=== PATIENT | female | born 1970 | race Caucasian/White ===

== ENCOUNTER 2017-03-12 18:26 | Inpatient (IN) | payer OTHER ==
[~2017-03-12] VITALS: Ht 160 cm; Wt 64.1 kg
[~2017-03-12 18:26] MED LIST: ADDERALL XR20 MG PO; ADDERALL XR25 MG PO; ADDERALL10 MG PO; BUSPAR5 MG PO; BUSPIRONE HCL10 MG PO; CLINDAMYCIN HY300 MG PO; CLONAZEPAM0.5 MG PO; CLONAZEPAM1 MG PO; CLONIDINE0.1 MG PO; DEXTROAMPH SACC10 M1 PO; EFFEXOR XR150 MG PO; GABAPENTIN300 MG PO; HYDROXYZINE PAM25 M1 PO; IRON325 M1 PO; KEFLEX750 MG PO; KLONOPIN0.5 MG PO; LASIX20 MG PO; LEVOTHYROXIN0.175 MG PO; LEVOTHYROXINE0.15 M1 PO; METHADONE H5 MG/5 ML PO; METHADONE HC10 MG/M1 PO; MOTRIN 600 MG600 MG PO; NEURONTIN300 MG PO; PERCOCET 325 MG1 TAB PO; VENLAFAXINE HY150 MG PO; ZOFRAN ODT4 MG PO
--- NOTE | 2017-03-12 18:54 | ED PSYCHIATRIC COMPLAINT ---
See Addendum History of Present Illness General Chief Complaint: Psychiatric Related Complaint Stated Complaint: +SI Source: patient, old records, police Exam Limitations: no limitations Vital Signs & Intake/Output Vital Signs & Intake/Output Vital Signs Date Time Temp Pulse Resp B/P B/P Pulse O2 O2 Flow FiO2 Mean Ox Delivery Rate 03/14 0625 97.2 62 20 100/50 98 Room Air 03/14 0255 97.7 76 20 126/76 99 Room Air 03/13 2000 97.4 58 18 111/63 100 Room Air 03/13 1542 97.3 61 12 107/65 99 Room Air Allergies Coded Allergies: chlorpromazine (From THORAZINE) (SEVERE RESP. DISTRESS 03/12/17) haloperidol (From HALDOL) (SEVERE RESP. DISTRESS 03/12/17) prochlorperazine (From COMPAZINE) (DYSTONIC REACTION 03/12/17) Reconcile Medications Bupropion HCl (Bupropion XL) 150 MG TAB.ER.24H 1 TAB PO QAM MENTAL HEALTH ( Reported) Buspirone HCl 15 MG TABLET 1 TAB PO BID MENTAL HEALTH (Reported) Clonazepam 0.5 MG TABLET 1 TAB PO 4XDAILY ANXIETY (Reported) Cranberry Fruit Concentrate (Cranberry) (Unknown Strength) CAPSULE (Unknown Dose) PO DAILY SUPPLEMENT (Reported) Dextroamphetamine/Amphetamine (Adderall XR 20 MG Capsule) 20 MG CAP.ER.24H 1 CAP PO QAM ADHD (Reported) Dextroamphetamine/Amphetamine (Dextroamp-Amphetamin 20 MG Tab) 20 MG TABLET 1 TAB PO QPM ADHD/SLEEP (Reported) Gabapentin 300 MG CAPSULE 1 CAP PO TID NERVE PAIN/MENTAL HEALTH (Reported) Methadone HCl 10 MG/5 ML SOLUTION 110 MG PO DAILY MENTAL HEALTH (Reported) Vitamin B Complex 1 EACH CAPSULE 1 CAP PO DAILY SUPPLEMENT (Reported) Triage Note: PT BIBA ON PEER FOR +SI WITHOUT PLAN. PT FLAGGED DOWN PD AND TOLD THEM SHE "DIDN'T WANT TO LIVE ANYMORE". PT TEARFUL ON ARRIVAL. Triage Nurses Notes Reviewed? yes Onset: Abrupt Duration: week(s): (1), constant, getting worse Timing: recent history Severity: severe Severity Numbers: 10 Associated Symptoms: suicidal ideation, DEPRESSION HPI: 47-year-old female with history of bipolar polysubstance abuse presents on police paper after she flagged down a precinct police lieutenant and told him that she did not want to live anymore. The patient presents tearful on arrival. She has no specific plan however when questioned she states that she was going to withhold the medication so that she from having a seizure and that it looked accidental so she will not to hell. She denies any alcohol or drug use today she has been compliant with taking her medication however recently moved here from [place] is currently living at home alone (MATT WERNER) Past History Travel History Traveled to [place] past 21 day No Medical History Any Pertinent Medical History? see below for history Neurological: NONE EENT: NONE Cardiovascular: NONE Respiratory: NONE Gastrointestinal: constipation Hepatic: hepatitis C Renal: NONE Musculoskeletal: sciatica, LUMBAGO Psychiatric: anxiety, depression, opioid dependence, ADHD Endocrine: hypothyroidism Tetanus Vaccine: 12/01/12 Surgical History Surgical History: non-contributory Psychosocial History Who do you live with Patient/Self What is your primary language Portuguese Family History Hx Contributory? No (MATT WERNER) Review of Systems Review of Systems Constitutional: Reports: see HPI. All Other Systems: Reviewed and Negative Comments Review of systems: See HPI, All other systems negative. Constitutional, no chills no fever, no malaise HEENT: no sore throat no congestion Cardiovascular: No chest pain , no palpitation Skin: no rashes, no change in skin Respiratory: No dyspnea no cough GI: No nausea no vomiting, no diarrhea, no bloating/constipation : No dysuria Muscle skeletal: No joint pain, no joint swelling, no back pain, no neck pain, Neurologic: no headache Psych: SEE HPI Heme/endocrine: No bruisin Immunology: No lymphadenopathy (MATT WERNER) Physical Exam Physical Exam General Appearance: well developed/nourished, no apparent distress, alert Neurological/Psychiatric: no motor/sensory deficits, awake, TEARFUL Comments: Well-developed well-nourished person in no acute distress HEENT: Normal EENT exam; PERRL, EOMI, . HEAD is atraumatic. moist mucous membranes. Neck: Supple,normal range of motion Back: Nontender, Full range of motion Cardiovascular: Regular rate and rhythms no murmurs rubs Respiratory: Chest nontender.There were no bony deformities, no asymmetry. No respiratory distress. Patient speaking in full complete sentences. Breath sounds clear to auscultation bilaterally: NO W/R/R Extremity: No edema, full range of motion of extremities, Neuro: Alert oriented x3, motor sensory normal,There were no obvious focal neurologic abnormalities. Skin: No appreciable rash on exposed skin, skin is warm and dry. Psych: Tearful, memory and judgment is normal. SAD PERSONS SAD PERSONS Response Value Age <19 or >45 years? yes 1 Depression/Hopelessness? yes 2 Previous Attempts/Psych Care yes 1 Rational Thinking Loss? yes 2 Single//? yes 1 Social Support? has no support 1 Stated Future Intent? yes 2 Total 10 SAD PERSONS Done? yes (MATT WERNER) Progress Differential Diagnosis: drug withdrawal, DEPRESSION BIPOLAR Plan of Care: Orders Procedure Date/time Status Continuous Observation Monitor 03/14 07 Active Continuous Observation Monitor 03/14 0300 Active Continuous Observation Monitor 03/13 230 Active Continuous Observation Monitor 03/13 190 Active Continuous Observation Monitor 03/13 0754 Active Current Medications Sig/Zaire Start time Last Medication Dose Stop Time Status Admin Clonazepam 0.5 MG 4 TIMES/DAY 03/14 1000 AC (KlonoPIN) 03/21 0959 Bupropion HCl 150 MG DAILY 03/13 1000 UNVr 03/13 (Wellbutrin XL) 0943 Buspirone HCl 15 MG BID 03/13 1000 UNVr 03/14 (Buspar) 0258 Gabapentin 300 MG TID 03/13 1000 UNVr 03/13 (Neurontin) 0943 Labs ordered 1999 case discussed with and signed out to Dr. Morales PENDING CRISIS EVAL (MATT WERNER) 7:45 pm patient signed out to me by JA Hunt. Waiting crisis evaluation. (MINA MORALES MD) Hand-Off Endorsed To: MINA MORALES MD Endorsed Time: 1999 Pending: consult (CRISIS) (MATT WERNER) Hand-Off Endorsed To: EZEQUIEL SARAH MD Endorsed Time: 2299 Pending: consult (MINA MORALES MD) Hand-Off Endorsed To: SOFYA YAP MD Endorsed Time: 699 Pending: consult (EZEQUIEL SARAH MD) Hand-Off Endorsed To: SYLVESTER MOSES MD Endorsed Time: 1899 Pending: consult (CRISIS) (SOFYA YAP MD) Hand-Off Endorsed To: DANICA NARAYAN DO Endorsed Time: 0700 Pending: consult (SYLVESTER MOSES MD) Departure Departure Disposition: STILL A PATIENT Condition: Stable Clinical Impression Primary Impression: Depression Referrals: CE RESENDEZ MD Departure Forms: Customer Survey General Discharge Information (MATT WERNER) PA/JOURNEYMAN OPERATOR ASSISTANT Co-Sign Statement Statement: ED Attending supervision documentation- [] I saw and evaluated the patient. I have also reviewed all the pertinent lab results and diagnostic results. I agree with the findings and the plan of care as documented in the PA's/JOURNEYMAN OPERATOR ASSISTANT's documentation. [x] I have reviewed the ED Record and agree with the PA's/JOURNEYMAN OPERATOR ASSISTANT's documentation. [] Additions or exceptions (if any) to the PAs/JOURNEYMAN OPERATOR ASSISTANT's note and plan are summarized below: [] (RIP SILVA,MINA) PA/JOURNEYMAN OPERATOR ASSISTANT Co-Sign Statement Statement: ED Attending supervision documentation- [] I saw and evaluated the patient. I have also reviewed all the pertinent lab results and diagnostic results. I agree with the findings and the plan of care as documented in the PA's/JOURNEYMAN OPERATOR ASSISTANT's documentation. [x] I have reviewed the ED Record and agree with the PA's/JOURNEYMAN OPERATOR ASSISTANT's documentation. [] Additions or exceptions (if any) to the PAs/JOURNEYMAN OPERATOR ASSISTANT's note and plan are summarized below: [] (TYREL SILVA,EZEQUIEL Dunlap) Departure Comments 03/14/17 7 am The patient was signed out to me by Dr. Moses. She is pending crisis evaluation. (DANICA NARAYAN DO) PA/JOURNEYMAN OPERATOR ASSISTANT Co-Sign Statement Statement: ED Attending supervision documentation- [] I saw and evaluated the patient. I have also reviewed all the pertinent lab results and diagnostic results. I agree with the findings and the plan of care as documented in the PA's/JOURNEYMAN OPERATOR ASSISTANT's documentation. [x] I have reviewed the ED Record and agree with the PA's/JOURNEYMAN OPERATOR ASSISTANT's documentation. [] Additions or exceptions (if any) to the PAs/JOURNEYMAN OPERATOR ASSISTANT's note and plan are summarized below: [] (EZEQUIEL SARAH MD)
[2017-03-12] MEDS ORDERED: CLONAZEPAM0.5 M2 PO (18:57)
[2017-03-12] MEDS ORDERED: GABAPENTIN300 M2 PO (18:58)
[2017-03-12] MEDS ORDERED: BUPROPION XL150 MG PO (18:58)
[2017-03-12] MEDS ORDERED: BUSPIRONE HCL15 M1 PO (18:58)
[2017-03-12] MEDS ORDERED: DEXTROAMP-AMPHE20 MG PO (18:59)
[2017-03-12] MEDS ORDERED: ADDERALL XR 2020 MG PO (18:59)
[2017-03-12] MEDS ORDERED: VITAMIN B COMP1 EACH PO (19:00)
[2017-03-12] MEDS ORDERED: CRANBERRY450 M3 PO (19:00)
[2017-03-12] MEDS ORDERED: METHADONE10 MG/5 M2 PO (19:01)
[2017-03-12 19:34] LABS: ABSOLUTE BASOPHIL COUNT 0.1 /CUMM (0.0-0.2); ABSOLUTE EOSINOPHIL COUNT 0.1 /CUMM (0.0-0.7); ABSOLUTE LYMPH COUNT 2.3 /CUMM (1.2-3.4); ABSOLUTE MONOCYTE COUNT 0.5 /CUMM (0.10-0.60); BASOPHIL % 0.6 % (0.0-2.0); EOSINOPHIL % 1.4 % (0-5); GRANULOCYTE % 70.1 % (42.2-75.2); HEMATOCRIT 33.6 % (37-47); MEAN CORPUSCULAR HGB 26.2 PG (27.0-31.0); MEAN CORPUSCULAR HGB CONC 31.5 G/DL (33.0-37.0); MEAN PLATELET VOLUME 8.2 FL (7.4-10.4); PLATELET COUNT 342 /CUMM (130-400); RBC DISTRIBUTION WIDTH 20.3 % (11.5-14.5); RED BLOOD CELL CT 4.05 /CUMM (4.20-5.40)
--- NOTE | 2017-03-14 07:44 | ED PSYCH CRISIS CONSULTATION ---
Crisis Consult Basic Assessment Date of Consult: 03/14/17 Responsible Person/Accompanied By: self/biba Insurance Authorization: Insurance #1: Insurance name: JULIA Espino C&A Phone number: Policy number: [id number] Group number: Authorization number: ED Provider: Patient's ED Provider: MATT WERNER Primary Care Physician: Patient's PCP: PATIENT HAS NO PRIMARY CARE DR PCP's Phone Number: Current Psychiatrist: [facility] Kenneth Huffman APRN [phone] Chief Complaint: Psychiatric Related Complaint Patient's Quote: I don't want to be alive Present Illness: Pt is a 47 yo female biba Fri on a [place] PD PEER due to pt making suicidal statements. Pt was at [facility] in [place] on Fri and told a parishoner she was suicidal and they called 911. Pt presented as agitated, combative and non-compliant in ED preventing completion of crisis consult until friday morning. Pt reports "I can't take it anymore... I have no reason to live anymore". Pt has a long hx of psychiatric inpatient treatment and polysubstance abuse treatment. She reports her last inpatient admission was at [facility] last yr. Her last admission to [facility] was 2014. She receives methodone treatment at [facility] and reports last heroin use 15 yrs ago. She reports also seeing Kenneth Huffman APRN at [facility] for her medications - adderall, klonopine. Pt reports current triggers are separation from and children and recent infidelity and potentional eviction from her housing. Pt reports her life is chaotic and she is confused and is having difficulty caring for herself. She reports difficulty maintaing her medications and has been missing several dosages of her thyroid med. After pt received her medications she presented as calmer though still tearful. she apologized for earlier escalation and stated she hates feeling and acting like that. Pt is OX3. denies AH/VH. vague paranoia "people are trying to hurt me" but unable to elaborate. Patient's Address: [address] [place] [id number] Other Phone Number: Who Do You Live With? Patient/Self (roommate) Family/Informants Interviewed: collateral provided by Willy Pitts at [facility] in [place] [phone] he reports not being familiar with pt but that she approached another [facility] Wed eveing during Bible Study and expressed suicidal thoughts and 911 was called and pt then transported to [place]. He has no other information regarding pt. Allergies - Coded Allergies: chlorpromazine (From THORAZINE) (SEVERE RESP. DISTRESS 03/12/17) haloperidol (From HALDOL) (SEVERE RESP. DISTRESS 03/12/17) prochlorperazine (From COMPAZINE) (DYSTONIC REACTION 03/12/17) Current Medications - Scheduled Medications Bupropion HCl (Bupropion XL) 150 MG TAB.ER.24H 1 TAB PO QAM MENTAL HEALTH #30 (Reported) Entered as Reported by PAULINA PALAFOX on 03/12/17 185 Buspirone HCl 15 MG TABLET 1 TAB PO BID MENTAL HEALTH #60 (Reported) Entered as Reported by PAULINA PALAFOX on 03/12/17 185 Clonazepam 0.5 MG TABLET 1 TAB PO 4XDAILY ANXIETY #120 (Reported) Entered as Reported by PAULINA PALAFOX on 03/12/17 185 Cranberry Fruit Concentrate (Cranberry) (Unknown Strength) CAPSULE (Unknown Dose) PO DAILY SUPPLEMENT (Reported) Entered as Reported by PAULINA PALAFOX on 03/12/17 190 Dextroamphetamine/Amphetamine (Adderall XR 20 MG Capsule) 20 MG CAP.ER.24H 1 CAP PO QAM ADHD #30 (Reported) Entered as Reported by PAULINA PALAFOX on 03/12/17 185 Dextroamphetamine/Amphetamine (Dextroamp-Amphetamin 20 MG Tab) 20 MG TABLET 1 TAB PO QPM ADHD/SLEEP #30 (Reported) Entered as Reported by PAULINA PALAFOX on 03/12/17 185 Gabapentin 300 MG CAPSULE 1 CAP PO TID NERVE PAIN/MENTAL HEALTH #90 (Reported ) Entered as Reported by PAULINA PALAFOX on 03/12/17 185 Methadone HCl 10 MG/5 ML SOLUTION 110 MG PO DAILY MENTAL HEALTH (Reported) Entered as Reported by PAULINA PALAFOX on 03/12/17 190 Vitamin B Complex 1 EACH CAPSULE 1 CAP PO DAILY SUPPLEMENT (Reported) Entered as Reported by PAULINA PALAFOX on 03/12/17 1900 Past History Past Medical History Neurological: NONE EENT: NONE Cardiovascular: NONE Respiratory: NONE Gastrointestinal: constipation Hepatic: hepatitis C Renal: NONE Musculoskeletal: sciatica, LUMBAGO Psychiatric: anxiety, depression, opioid dependence, ADHD Endocrine: hypothyroidism Past Surgical History Surgical History: non-contributory Psychosocial History Strengths/Capabilities: wants help/wants to be able to see her children again Physical Limitations (Interventions): None Psychiatric Treatment History Psych Treatment Psychiatric Treatment Yes Inpatient Treatment Yes Outpatient Treatment Yes Reason for Treatment Suicidal ideation; polysubstance abuse hx Dates of Treatment 1st inpatient 2002. Last CP 2014;long standing at [facility] Response to Treatment periods of agitation and confusion. last [facility] ED vist Sep 2015. Diagnosis by History: PTSD, ADHD, Mood disorder NOS, Polysubstance abuse and Borderline Personality Disorder Substance Use/Abuse History Drug Use/Abuse 1 Substances Used/Abused Yes Substance Used/Abused Prescribed Opiates Last Used yesterday How much used/taken 110mg How often daily Drug Use/Abuse 2 Substances Used/Abused Yes Substance Used/Abused Marijuana How often couple times/wk Substance Abuse Treatment Substance Abuse Treatment Past Substance Abuse TX Yes Inpatient Treatment No Outpatient Treatment Yes Location of Treatment [facility] Reason for Treatment methodone maintenance program Response to Treatment last heroin use 2002 Comments: Pt takes prescription adderall, klonopin and methodone. Pt tox screen also positive for marijuana Current Mental Status Mental Status Orientation: Person, Place, Situation Affect: Anxious, Angry, Depressed, Inappropriate, Variable Speech: Loud Neuro-vegetative: Appetite Decreased, Concentration Poor, Energy Decreased, Helpless, Loss of Interest, Sleep Disturbance Appearance Appearance- Dress/Hygiene: hospital scrubs; tearful; agitated; laying in bed then upright more irritated. Behaviors Thought Process: Irrational Thought Content: Paranoid Memory: Impaired Insight: Poor SI/HI Risk Assessment Past Suicidal Ideation/Attempts Yes (teenager) Current Suicidal Ideation/Att Yes Past Homicidal Ideation/Att: No Current Homicidal Ideation/Attempts No Degree of Intent: Thoughts/No Intent Danger To: Self Gravely Disabled: Lack of Insight, Poor Impulse Control, Poor Judgment Risk Factors: chronic/serious med cond., high anxiety/distress, history of suicide atmpts, SA/MH hospitalized, substance abuse, poor impulse control, limited support Lethality Ratin PTSD Checklist PTSD Done? patient declined ED Management Sitter: Yes Restraints: No DSM5/PS Stressors/Medical Prob Diagnosis' (DSM 5, Stressors, Medical): major Depressive D/O svere (F32.2) PTSD (F43.12) opiate use disorder in sustained remission (F11.20) cannabis use d/o (F12.20) Borderline Personality D/O(F60.3) pending eviction marital separation children out of her care hearing loss thyroid Current GAF: 25 Comments: pt reports separation from / infidelity and children out of her care as triggers for her hopelessness and SI Departure Disposition Psych Medical Clearance Date: 03/14/17 Medically Cleared at: 0730 Time Started: 07 Time Ended: 814 Psychiatrist Consulted: Torrey Nguyen MD Date Disposition Established: 03/14/17 Time Disposition Established: 819 Plan for Disposition - Modality: Inpatient Psychiatry Facility: [facility] Rationale for Disposition: Pt reports SI; inability to keep herself safe-states "i don't want to be alive". presenting with labile mood and agitation. requires inpatient psychiatric care. Type of IP Admission: Voluntary Referrals PATIENT HAS NO PRIMARY CARE DR (PCP/Family)
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
[2017-03-14 17:10] VITALS: BP 118/67
[2017-03-14 19:51] VITALS: BP 116/64
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
--- NOTE | 2017-03-14 22:59 | Admission Certification ---
Admission Certification Certification Statement - As attending physician, I certify that at the time of - admission, based on clinical presentation, severity of - symptoms, need for further diagnostic testing and - therapeutic interventions, and risk of adverse outcomes - without in-hospital treatment, in my clinical assessment, - this patient requires an acute hospital stay for a minimum - of two nights or longer. I have also considered psychsocial - factors such as support system, advanced age, financial - issues, cognitive issues, and failed out-patient treatments, - past re-admission history, safety of patient, and lack of - compliance as applicable. Specific rationale supporting this admission is: SUICIDAL IDEATION
[2017-03-15 07:39] VITALS: BP 107/79
[2017-03-15 12:58] VITALS: BP 94/68
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
--- NOTE | 2017-03-15 13:17 | CPS MD/APRN INITIAL ASSE PSYCH ---
Psychiatric Admission [employer] Acquis[employer] Attorney's Note Reviewed: Yes Patient Seen and Examined: Yes Identifying Information: 47 y/o CF domiciled vol admission Chief Complaint: i was scared and unstable Reaction to Hospitalization: i needed to be in here History of Present Illness Onset of Illness: over the course of the past several weeks Circumstances Leading to Admission: psychososocial stressors Problem(s) Justifying Need for Admission: mood suicidal thoughts, medication non adherence Other HPI: 47 CF initially BIBA after she was placed on a police peer for making si statements. She has a hx of mental health and polysubstance dep currently on methadone maint at the [facility] reports worsening depression over the past several weeks due to numerous psychosocial stressors including family leadin to depression which she currently rates as 10/10 having poor sleep and feelign unstable. She denies current SI, she refused to talk about current or past substance use "i dont remember and dont think aobut that". She denies previous manic sx denies previous truama or ptsd sx, denies psy chosis. Past Psychiatric History Past Diagnosis(es)- if any: Depression polysubstance abuse Past Precipitating Factors- if any: substance use, medication non adherence - Include inpatient and outpatient treatment Treatment History: [facility]ious inpatient psych hospital states rougly 25 lifetime laset occured 1 year4 ago, reports being in tx at [facility] with KIMBERLY Colon having numerous medication tirals in the past History of Suicide Attempts or Gestures denies hx of SI but has made several stateements and been admitted for endorsing these thoughts Substance Abuse History: refused to talk about her hx, currently on methadone maint. Allergies: Coded Allergies: chlorpromazine (From THORAZINE) (SEVERE RESP. DISTRESS 03/12/17) haloperidol (From HALDOL) (SEVERE RESP. DISTRESS 03/12/17) prochlorperazine (From COMPAZINE) (DYSTONIC REACTION 03/12/17) Home Med List: Methadone 110mg klonopin trazodone lexapro 20 mg buspar - Include any medical condition(s) that may - impact the patient's recovery/remission Past Medical History: hep C, thyroid Past History Medical History Neurological: NONE EENT: NONE Cardiovascular: NONE Respiratory: NONE Gastrointestinal: constipation Hepatic: hepatitis C, ANTIBODY Renal: NONE Musculoskeletal: sciatica, LUMBAGO Psychiatric: anxiety, depression, opioid dependence, ADHD Endocrine: hypothyroidism History of MRSA: No History of VRE: No History of CDIFF: No Isolation History: Standard Tetanus Vaccine: 12/01/12 Surgical History Surgical History: non-contributory Psychiatric Family/Social Hx Family History Psychiatric Illness: sister with both mental heatlh and substance abuse hx, denies family hx of complerted suicide Substance Use: sisters with polysubstance use Suicides: denies Social History Living Situation: domiciled Significant Relationships (family/friends): children and significant other Education: unknown Vocation/Occupation: unemployed Legal: denies Healthly Behaviors Screening Tobacco Screening Tobacco Use from ED Docu: Current Daily Use Daily Tobacco Use Amount/Type: => 5 Cigarettes daily - If tobacco counseling indicated - the following topics are required. - #1 Recognizing dangerous situations. - #2 Coping Skills. - #3 Basic information about quitting. Status of Tobacco Cessation Counseling: Counseling Refused Cessation Med Status Nicotine Patch Ordered Alcohol Screening - ETOH screen POS if BAL >=80 or Audit-C>= M4/F3 Audit-C Score from Diag Assess: 0 Blood Alcohol Level: Laboratory Tests 03/12 191 Toxicology Serum Alcohol (<10 MG/DL) < 10.0 Alcohol Use Screening Results: Neg per Audit C &/or BAL - If ETOH counseling indicated - the following topics are required. - #1 Express concern about the patient's - drinking at unhealthy levels, include informing - of national norms for moderate drinking: - men <= 14 drinks/week, max 4 drinks/occasion - women <= 7 drinks/week, max 3 drinks/occasion - #2 Providing feedback, including linking alcohol to - negative physical effects (liver injury, hypertension) - negative emotional effects (relationship problems and - depression) - negative occupational consequences (reduced work - performance) - #3 Advising the patient to abstain from alcohol or - to drink below national norms for moderate drinking - (as listed above). Status of ETOH Use Counseling: N/A B/C NO ETOH Use Metabolic Screening - Screen if on a Neuroleptic Medication - Metabolic screening should include: - Blood Pressure, BMI, Glucose or Hgb A1c, & a - Lipid profile from within the past 365 days. Exam and Plan Mental Status Examination Ambulation Status: regular Appearance: appearsed stated age Attitude towards examiner: insistent medication focused Psychomotor activity: Psychomotor agitation Behavior: labile Quality of speech: pressured Affect: irritable Mood: depressed Suicidal Ideation: denies Homicidal Ideation: denies Hallucinations: denies Paranoid/Delusional Material: denies Difficulties with thought organization: none Insight: limited Judgment: limited Orientation: AAOX3 Cognition: itnact Memory Function: intact Estimate of intellectual functioning: average Assets/Strengths Patient Identified Assets/Strengths: able to communicate needs Impression/Plan - Include all active medical diagnosis that require tx DSM 5 Diagnosis(es): MDD w/o psychosis polysubstance dep nicotine dep - Initial Tx Plan for Active Psych & Medical Conditions Treatment Plan: continue home medications, limite klonopin use - Factors that would help patient function - in a less restrictive setting. Factors: none
[2017-03-16 12:27] VITALS: BP 107/59
--- NOTE | 2017-03-16 12:42 | CP SOUTH PROGRESS NOTE PSYCH ---
Psych (Inpt) Progress Note Progress Note Include the following elements, when applicable: Involvement in the active treatment of the patient with behavioral observations of the patient and the patient's response to the treatment. Review of the ongoing treatment process in the context of the treatment plan. Indication of how multi-disciplinary staff members are carrying out the treatment plan. Plans for future interventions and recommendations for revision of the treatment plan. Liaison with other physicians/providers. Progress Note: patient seen chart reviewed d/w nursing staff She reports feeling angry and worse than yesterday, she reports depression in the contexct of not getting all of her medications, she has been demanding needy and medication focused. She reports pain in numerous areas more specifically her hand unhappy with tylenol order. She did utilize vistaril last evening with good effect on mood and sleep. she reports vague HI toward staff "They dont do anyything for me they dont listen or understand". denies plan intent or means, denies si or psychosis. med compliant no se reported. CF ASA no pmr/pma. Cooperative normal speech angry depressed mood tearful affect. linear denies si/hi or psychosis. i/j both limited MDD, polysbustance abuse no med changes as she is seekign more benzos, encourage vistaril
[2017-03-16 16:33] VITALS: BP 96/64
[2017-03-16 19:49] VITALS: BP 94/62
[2017-03-17 07:41] VITALS: BP 116/62
[2017-03-17 12:10] VITALS: BP 117/66
--- NOTE | 2017-03-17 12:14 | SOCIAL WORKER PROG NOTE PSYCH ---
Social Work Progress Note Progress Note Luz reported that her weekend "sucked." She doesn't care for her meds being "messed with." She reported that her meds are not what they were in the community and it is effecting her concentration and causing fatigue. She reports not feeling well mentally or physically. She wishes she could be transferred to [facility], stating they wouldn't mess with her meds. Aside from her medication patient presented as depressed with a flat affect. She seemed emotional. Talked about having more and more difficulty functioning. She isn't taking care of herself like she used to. She doesn't care about anything. She stated that she had been experiecing suicidal thoughts and that she had been scared to act on anything in the past, but she is feeling less like that and states "I have nothing to lose." She had difficulty initially identifying changes in her life, but later in the conversation revealed that she is being evicted from her section 8 housing and has no where to go. She feels she is being bullied by the landlord to get out. She shared that she made some poor decisions about letting people stay at her apt. and she wasn't supposed to. I asked if there was an eviction date? She said she didn't know and didn't care at this point. She reported that Friday was her birthday and she was feeling lonely and missed her kids. Her children 4 and 8 live with their Father. She reported that she let people into her apt. because she is lonely. Her family is in [place]. The only support she identifies is her ex . She was willing to have me call him and possibly arrange a meeting. Bob Quintana is his name. Contact # [phone]. She told me that she needs to go inpatient for mental health somewhere because she can't function any more. She repeatedly stated she "needed a break" from the stress she was experiencing. Later in the day Luz came to my office upset over the reduction of her Klonopin. She stated she wants to go because she is not being treated fairly here. She wants a direct admission from here to [facility]. I told her that doesn't happen and if she leaves, she would need to present at their ER. She was upset using a loud voice. She feels that the nursing staff don't like her and are "apethetic" towards her. She stated she is scared to go into benzo withdrawal. I continued to say that she is going to have an opportunity to see the doctor today and he can share why he is changing her meds and she has the opportunity to express her concerns in a calm fashion. According to nursing she signed a 3 day paper.
[2017-03-17 15:47] VITALS: BP 123/84
[2017-03-17 19:52] VITALS: BP 112/77
--- NOTE | 2017-03-17 20:43 | CP SOUTH PROGRESS NOTE PSYCH ---
Psych (Inpt) Progress Note Progress Note Include the following elements, when applicable: Involvement in the active treatment of the patient with behavioral observations of the patient and the patient's response to the treatment. Review of the ongoing treatment process in the context of the treatment plan. Indication of how multi-disciplinary staff members are carrying out the treatment plan. Plans for future interventions and recommendations for revision of the treatment plan. Liaison with other physicians/providers. Progress Note: PSYCHIATRIST NOTE, 03/17/2017: I discussed this patient's presentation and progress to date, current mental status, treatment and discharge planning with staff team today in the daily morning ITTM and I met with her myself in individual session. Patient was rather histrionic through much of our meeting but was able to calm herself down fairly well at times during the later part of the contact. [id number], she stressed the multiple difficulties she has been facing in recent months, the most prominent of which likely being her pending eviction from her apartment ( for having others stay with her in [address] housing unit); however, she claims that she was only given written order for the eviction about one month ago which may afford her still some time to organize another living situation. She expressed ambivalence about remaining in hospital if her medications were going to be reduced, by which she meant the Klonopin and Ritalin (though she claimed that since the latter was not exactly like her Adderall it "only keeps me from withdrawing but otherwise doesn't do any good..." I observed that the way she presented to hospital it appears that any/all of her preadmission meds might be called into question with regard to efficacy/adequacy. In the end, I agreed to make no further reductions in the Ritalin or Klonopin so long as this is a brief admission and she returns promptly to the care of her [employer] prescriber and [facility] providers; the latter have recommended she begin their IOP as soon as possible, even this week. Patient insists that she is not being provided adequate support services by her current outpatient treaters; I suggested that since she is a resident of [facility], at this time she would be eligible for a [facility] behavioral health case manager; she expressed keen interest in being assigned a behavioral health case manager but made it very clear that she does not want any "clinical" services from [facility] at this time but is quite satisfied with [facility] though the latter's location in [place] creates an everyday burden for her just to get there; she would very much like to have assistance with organizing transportation to her therapies.\\She also mentioned wanted to have an "[facility] behavioral health case manager."
[2017-03-18 07:33] VITALS: BP 126/69
--- NOTE | 2017-03-18 11:29 | SOCIAL WORKER PROG NOTE PSYCH ---
Social Work Progress Note Progress Note Dr. Valentine and I met with Luz together this morning. We began talking about how we could help her with her case management needs. She agreed to do a referral to [facility] for case management specifically. She started getting upset and tearful at the meeting. She seems to want to go to an inpatient setting for 30 days. We told her that was not available for mental health and that it seemed like alot of issues she is having would not be resolved in here specifically. She was very help rejecting during our conversation. I offered to do a referral for her to [facility] and explained that could offer her some respite for a couple weeks while she works on things. She didn't agree to that option at this point. She continued to focus on how she is not ready to leave and she feels we are "kicking her out." Dr. Valentine told her that we will start the process of looking into things and see how it goes. He told her if she stays he will continue to taper her medications as he feels that should be done. She left the office with me and continued to cry and speak loudly about how this was unfair. She signed releases for [facility], [facility], and her SALES APPOINTMENT COORDINATOR Kenneth Huffman. She also asked for the patient advocate number which was given to her. I called her SALES APPOINTMENT COORDINATOR, who is connected to [facility] in [place]. [phone]. I left a message. I missed her call and called again and left another voicemail. Referral was faxed to [facility] and a message left for Karen in intake. Called Mr. Quintana (ex ) and left a message.
--- NOTE | 2017-03-18 11:34 | CP SOUTH PROGRESS NOTE PSYCH ---
Psych (Inpt) Progress Note Progress Note Include the following elements, when applicable: Involvement in the active treatment of the patient with behavioral observations of the patient and the patient's response to the treatment. Review of the ongoing treatment process in the context of the treatment plan. Indication of how multi-disciplinary staff members are carrying out the treatment plan. Plans for future interventions and recommendations for revision of the treatment plan. Liaison with other physicians/providers. Progress Note: PSYCHIATRIST NOTE, 03/18/2017: I discussed this patient's progress to date, current mental status, treatment and discharge planning with staff team today in the daily morning KAUR and Ondina Maldonado LCSW, and I met with her together in individual session. We went over the practical difficulties patient has been saying brought her to the point where she was hospitalized and did our best to problem solve with her. Patient behaved intermittently in a rather histrionic manner but in between these brief outbursts was able to speak rationally, without any evidence of formal thought disorder; she seemed to escalate emotionality any time that we did not completely agree with her "plans" for the future (e.g. staying in hospital for "several weeks to rest...") Though the way she was speaking made me even more concerned about increased impulsivity contributed to by her ongoing outpatient prescription of amphetamines and benzodiazepines patient continued to adamantly refuse to consider further taper of either or any other changes to her psychotropic medication regimen for that matter. Ms. Maldonado noted that if patient wanted a "break" from concerns connected to her current residence, we could make a referral to [facility] housing in [place] which would actually be closer to her current treatment which has been problem for her coming into [place] from [place] everyday. I had requested an endocrine consultation with Dr. Godinez due to patient's very high and rising TSH and very significantly depressed T4 and free T4; I spoke directly with Dr. Godinez who told me that patient had been previously treated with 175mcg of Synthroid, not the 100mcg she is currently prescribed and that patient has from the look of her thyroid studies not been taking her thyroid supplement "for a long time...months...maybe years." Dr. Godinez wishes to repeat thyroid tests once prior to discharge; she stressed that patient is quite significantly hypothyroid presently.
[2017-03-18 12:16] VITALS: BP 124/76
--- NOTE | 2017-03-18 15:03 | Cons- Endocrinology ---
General Information and HPI Consulting Request Date of Consult: 03/18/17 Requested By: Liliana Reason for Consult: management of hypothyroidism Source of Information: patient Exam Limitations: no limitations History of Present Illness: She has a history of hypothyroidism, drug abuse and depression, wasn't on thyroid medication for a while, was admitted to for major depression disorder and suicidal ideation. She was supposed to be on Levothyroxine 175 mcg daily. Blood work done on 03/12/2017 showed TSH 87.8, free T4 0.13. On 03/15/2017, she was put on Levothyroxine 100 mcg daily. Repeat TFT on 03/18/2017 showed TSH 104 and free T4 0.19. Allergies/Medications Allergies: Coded Allergies: chlorpromazine (From THORAZINE) (SEVERE RESP. DISTRESS 03/12/17) haloperidol (From HALDOL) (SEVERE RESP. DISTRESS 03/12/17) prochlorperazine (From COMPAZINE) (DYSTONIC REACTION 03/12/17) Home Med List: Bupropion HCl (Bupropion XL) 150 MG TAB.ER.24H 1 TAB PO QAM MENTAL HEALTH ( Reported) Buspirone HCl 15 MG TABLET 1 TAB PO BID MENTAL HEALTH (Reported) Clonazepam 0.5 MG TABLET 1 TAB PO 4XDAILY ANXIETY (Reported) Cranberry Fruit Concentrate (Cranberry) (Unknown Strength) CAPSULE (Unknown Dose) PO DAILY SUPPLEMENT (Reported) Dextroamphetamine/Amphetamine (Adderall XR 20 MG Capsule) 20 MG CAP.ER.24H 1 CAP PO QAM ADHD (Reported) Dextroamphetamine/Amphetamine (Dextroamp-Amphetamin 20 MG Tab) 20 MG TABLET 1 TAB PO QPM ADHD/SLEEP (Reported) Gabapentin 300 MG CAPSULE 1 CAP PO TID NERVE PAIN/MENTAL HEALTH (Reported) Methadone HCl 10 MG/5 ML SOLUTION 110 MG PO DAILY MENTAL HEALTH (Reported) Vitamin B Complex 1 EACH CAPSULE 1 CAP PO DAILY SUPPLEMENT (Reported) Review of Systems Review of Systems Constitutional: Reports: see HPI. Cardiovascular: Denies: chest pain, palpitations. Respiratory: Denies: short of breath. Neurological/Psychological: Reports: other (tearing and anxious). 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 [facility] Smoking Status: Current Everyday Smoker ETOH Use: occasional use Illicit Drug Use: marijuana Functional Ability ADLs Independent: dressing, eating, toileting, bathing. 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 Exam & Diagnostic Data Last 24 Hrs of Vital Signs/I&O Vital Signs Date Time Temp Pulse Resp B/P B/P Pulse O2 O2 Flow FiO2 Mean Ox Delivery Rate 03/18 1216 62 124/76 03/18 0733 97.0 74 126/69 03/17 1952 97.7 72 112/77 03/17 1547 66 123/84 Physical Exam General Appearance: mild distress Neck: normal inspection Respiratory: normal breath sounds Cardiovascular: regular rate/rhythm Gastrointestinal: normal bowel sounds, soft Extremities: no edema Labs/Lai Results: Laboratory Tests 03/18 613 Chemistry Vitamin B12 (239 - 931 pg/mL) 539 Folate (2.76 - 20.0 ng/mL) 5.7 TSH (0.270 - 4.200 uIU/mL) 104.000 H Free T4 (0.64 - 1.79 ng/dL) 0.19 L Thyroxine (T4) (4.5 - 10.9 ug/dL) 2.4 L Assessment/Plan Assessment/Plan She has a history of hypothyroidism, drug abuse and depression, wasn't on thyroid medication for a while, was admitted to for major depression disorder and suicidal ideation. She was supposed to be on Levothyroxine 175 mcg daily. Blood work done on 03/12/2017 showed TSH 87.8, free T4 0.13. On 03/15/2017, she was put on Levothyroxine 100 mcg daily. Repeat TFT on 03/18/2017 showed TSH 104 and free T4 0.19. Severe hypothyroidism is due to noncompliance of thyroid medication. Plan: 1. increase Levothyroxine to 175 mcg daily 2. repeat TSH, free T4 on 03/21/2017 to look for a trend. will follow. Consult Acknowledgment - Thank you for your consult request.
[2017-03-18 19:53] VITALS: BP 124/74
[2017-03-19 07:57] VITALS: BP 107/57
--- NOTE | 2017-03-19 11:31 | SOCIAL WORKER PROG NOTE PSYCH ---
Social Work Progress Note Progress Note Dr. Valentine, Luz, and I met together today. Dr. Valentine informed her that we will have her stay through Friday at least and then re-evaluate how she is doing and look at her thyroid function. Her hypothyroidism is most likely causing alot of her current symptoms and causing her to feel that she can't function. She talked about not taking her medications and that she just didn't care anymore, because she didn't care about herself or feel that she deserved better. She broke down crying explaining to the doctor and I how she was very hurt by her leaving her for another young woman. She states this affair was going on for 6 years. Since that time she has struggled. She acknowledges needing help and wanting to get her life back. She specifically wants to be a Mother to her 2 children. She last spoke with them at the beginning of February. She said they had a nice time together. Her ex- wants her to be stable on her meds and wants to see her in an inpatient setting for a month. We explained that people aren't hospitalized for that length of time anymore. I told her I called her ex yesterday and left a message, but hadn't rec'd a call back yet. Talked about the strengths that she does have and to focus on those. She acknowledged wanting to stay away from the "pill pushers and people selling methadone" outside of the methadone clinic. She is very interested in attending IOP at [facility] and states she would need to get there around 7am to participate in groups. She would like help in getting [facility] to bring her again. I told her I would call them. She has alot of knowledge about her illness, DBT, addiction issues ect.. She was encouraged her to start writing about it. She seemed to like that idea. She was appreciative of the time the doctor spent talking to her today. Called Kenneth Colon APRN 2x's today, but we continue to miss eachother. She was at a training. Dayanarasergio Siegel submitted a PTR form to [facility] to try and get Luz rides again.
--- NOTE | 2017-03-19 12:24 | CP SOUTH PROGRESS NOTE PSYCH ---
Psych (Inpt) Progress Note Progress Note Include the following elements, when applicable: Involvement in the active treatment of the patient with behavioral observations of the patient and the patient's response to the treatment. Review of the ongoing treatment process in the context of the treatment plan. Indication of how multi-disciplinary staff members are carrying out the treatment plan. Plans for future interventions and recommendations for revision of the treatment plan. Liaison with other physicians/providers. Progress Note: PSYCHIATRIST NOTE, 03/19/2017: I discussed this patient's slow progress to date, current mental status, treatment and discharge planning with staff team today in the daily morning ITTTian and Ondina Maldonado LCSW, and I met with her again together in individual session. The first thing we discussed was the consultation from electronic gluing machine operator, Dr. Godinez , which I had mentioned in yesterday's progress note; she was quite concerned about the degree/extent of depression in patient's thyroid functions and the advisability of restarting treatment at a higher dose than currently (placed on 100mcg/day on admission but had previously been prescribed 175mg daily but had not been taking her Synthroid most likely for a very long time). Current severe hypothyroid state likely contributes significantly to patient's depressed and anxious (and at times near hysterical) [id number]. Due to the need to rapidly increase dose of Synthroid I will not further increase Wellbutrin dose or taper current Klonopin dose at this time/yet. Patient wished the PRN Seroquel and trazodone discontinued, as she claimed to have found them to be ineffective during previous treatment. We discussed nonpharmacologic treatments which would likely be beneficial to her (such as DBT) and that she could be referred to such a group after completing IOP at [facility] which is her current short- term plan. Patient calmed significantly over the course of an extended interview; at the conclusion of our meeting she exclaimed that "I have never in my life spent this much time speaking with a psychiatrist. Thank you for caring." (For further important details of Ms. Maldonado and my session with this patient today, please see the latter's progress note for this date.)
[2017-03-19 12:30] VITALS: BP 100/78
[2017-03-19 16:06] VITALS: BP 121/72
[2017-03-19 19:48] VITALS: BP 94/63
[2017-03-20 07:40] VITALS: BP 118/67
--- NOTE | 2017-03-20 08:40 | SOCIAL WORKER PROG NOTE PSYCH ---
Social Work Progress Note Progress Note Spoke with Luz yesterday about rescinding her 3 day paper to terminate voluntary status. She agreed to revoke it, but we forgot to do this yesterday. I approached her today and she rescinded the paper. She said she was having a difficult time with the "med nurse". I didn't pay much focus on that. I spoke with her later while she was sitting in the kitchen. She said she was "spacing out" and just thinking about sad things. Thinking of her kids mostly. Encouraged her not to dwell on the past and to focus on today and what she can do for herself today to help her situation. She said she hasn't slept and she needs some rest. She asked if her ex called me back. I told her he hadn't. She asked that I try him again. She seemed deeply hurt by his apparent lack of concern. She is afraid to be alone in the community. We talked about V[facility] services checking in with her daily. It seems like VNS coming in the afternoon/ evening would be best, since she has to leave to go to [facility] so early in the morning. Luz decided to take a nap for an hour before lunch. Spoke with Karen at [facility] who informed me that they will give Luz an intake appt. for case management services. Intake will be with Rosa Flowers 04/02 at 12:30pm. Called [facility] to set up daily med administration. Spoke with Haroldo Harrington (lace tearing supervisor). Gave him the referral. Will call when discharge date is confirmed. [employer] required additional information for the PTR form, which was provided and faxed back today.
[2017-03-20 12:21] VITALS: BP 108/68
[2017-03-20 16:20] VITALS: BP 93/68
--- NOTE | 2017-03-20 18:01 | CP SOUTH PROGRESS NOTE PSYCH ---
Psych (Inpt) Progress Note Progress Note Include the following elements, when applicable: Involvement in the active treatment of the patient with behavioral observations of the patient and the patient's response to the treatment. Review of the ongoing treatment process in the context of the treatment plan. Indication of how multi-disciplinary staff members are carrying out the treatment plan. Plans for future interventions and recommendations for revision of the treatment plan. Liaison with other physicians/providers. Progress Note: PSYCHIATRIST NOTE, 03/20/2017: I discussed this patient's progress to date, current mental status, treatment and discharge planning with staff team today in the daily morning ITTM and also met with her again myself in individual session. Ms. Maldonado is working with patient to set up additional supports in the community (e.g. [facility] residential case manager; daily visiting nurse services). Patient presented as much quieter and withdrawn today, appeared profoundly sad and did acknowledge significantly depressed mood though still feeling safe from self-harm here in hospital. We went over current anti-depressant regimen; she was concerned that increasing Wellbutrin might intensify her anxiety symptoms and wished to hold off on upward dose titration; I encouraged her to utilize the low dose PRN's of Abilify; patient has taken only a single 2mg dose of Abilify since yesterday. She agreed to my increasing daily dose of BuSpar which she had previously found helpful at 30mg/day to a total of 45mg daily by doubling HS dose tonight and then further titrating dose up to a total of 60mg/day before the weekend. She is continuing to experience some sleep difficulty and hopefully the increased dose of BuSpar at HS and upward titration of PRN Neurontin will help with this. Patient had asked that her doses of Klonopin be stretched out more during the day; I changed dosing from 0.5mg 2x/day to 0.25mg 4x/day but maintained the current daily dose total of 1mg and the ultimate plan/recommendation continues to be gradual but complete discontinuation of Klonopin.
[2017-03-21 07:39] VITALS: BP 104/64
--- NOTE | 2017-03-21 08:18 | SOCIAL WORKER PROG NOTE PSYCH ---
Social Work Progress Note Progress Note Pt wants to call [facility] today to talk to her case management assistant, to find out what options she has in regards to her section 8 voucher, as she is concerned that she thinks her current landlord "wants me out as soon as possible". Pt is tearful, states the past 2 years she has not taken very good care of herself. She plans to return to [facility] IOP/ and alla to make appointments for thyroid follow up with PCP. * Community resource contacts and liaison with other clinicians/agencies
--- NOTE | 2017-03-21 08:34 | PN- Endocrinology ---
Assessment/Plan Assessment: She has a history of hypothyroidism, drug abuse and depression, wasn't on thyroid medication for a while, was admitted to for major depression disorder and suicidal ideation. She was supposed to be on Levothyroxine 175 mcg daily. Blood work done on 03/12/2017 showed TSH 87.8, free T4 0.13. On 03/15/2017, she was put on Levothyroxine 100 mcg daily. Repeat TFT on 03/18/2017 showed TSH 104 and free T4 0.19. Severe hypothyroidism is due to noncompliance of thyroid medication. Since 03/18/2017, she has been on Levothyroxine 175 mcg daily. Repeat TFT was done this morning her TSH was 85.2 and free T4 0.40. Plan: increase Levothyroxine to 200 mcg daily; repeat TSH and free T4 next week. Subjective Subjective: She feels slightly better. Objective Last 24 Hrs of Vital Signs/I&O Vital Signs Date Time Temp Pulse Resp B/P B/P Pulse O2 O2 Flow FiO2 Mean Ox Delivery Rate 03/21 0739 98.5 66 104/64 03/20 1620 71 93/68 03/20 1221 64 108/68 Results Pertinent Lab/Lai Results: Laboratory Tests 03/21 0656 Chemistry TSH (0.270 - 4.200 uIU/mL) 85.200 H Free T4 (0.64 - 1.79 ng/dL) 0.40 L
--- NOTE | 2017-03-21 09:19 | SOCIAL WORKER PROG NOTE PSYCH ---
Social Work Progress Note Progress Note SHANI CARDONA [id number] 1970 SHANI CARDONA [id number] Pended Authorization # Client Authorization # Type of Request [id number] CONCURRENT Date of Admission/ Start of Services Requested From Submission Date 03/14/2017 03/21/2017 03/21/2017
[2017-03-21 12:24] VITALS: BP 114/73
--- NOTE | 2017-03-21 15:29 | SOCIAL WORKER PROG NOTE PSYCH ---
Social Work Progress Note Progress Note Voicemail from Nohemi Colon regarding a follow-up appointment for 03/31 at 5pm. This contact wanted clinical faxed to [phone]. This voicemail was left on Ondina Maldonado's voicemail on 03/21.
[2017-03-21 15:48] VITALS: BP 102/68
--- NOTE | 2017-03-21 16:47 | CP SOUTH PROGRESS NOTE PSYCH ---
Psych (Inpt) Progress Note Progress Note Include the following elements, when applicable: Involvement in the active treatment of the patient with behavioral observations of the patient and the patient's response to the treatment. Review of the ongoing treatment process in the context of the treatment plan. Indication of how multi-disciplinary staff members are carrying out the treatment plan. Plans for future interventions and recommendations for revision of the treatment plan. Liaison with other physicians/providers. Progress Note: PSYCHIATRIST NOTE, 03/21/2017: I discussed this patient's progress to date, current mental status, treatment and discharge planning with staff team today in the daily morning ITM and met with her again myself in individual session; we had continued our discussion of her severely hypothyroid state yesterday, 03/20/2017 and today, in response to continuing very low thyroid studies endocrinology, Dr. Godinez, further increased dose of levothyroxine to 200mcg/day for over the weekend and will repeat studies next week (I have ordered them for 03/24/2017). We continued our discussion of the multiple negative effects of hypothyroid status and it's undoubted contribution to patient's current anxious depression. She is tolerating the upward titration of BuSpar went thus far, will be on full 60mg/ day from today forword. Patient noted benefit from PRN dose of Abilify today and wished to start on a regular dose over the coming weekend; I will begin Abilify, 2mg 2x/day and continue the PRN's of same. The Abilify is helping with anxiety/worry and racing thoughts and may also serve to augment the effectiveness of Wellbutrin; though patient has shown gradual calming and better self-control given the continuing current level of anxiety, we do not plan to increase the daily dose of Wellbutrin above 200mg/day over the weekend. Patient was not as withdrawn and sullen in appearance today as she had been yesterday, a little more hopeful and positive in outlook. We continue to maintain a lowered dose of Ritalin (20mg) and Klonopin ) (1mg) from her preadmission prescriptions in order to minimize the "noise" (from withdrawal symptoms) likely to be associated with complete abrupt discontinuation of two such habit-forming drugs; our ultimate recommendation, however, remains that the slow taper (and complete discontinuation) of both of these medications should continue soon after discharge to outpatient treatment.
[2017-03-21 19:40] VITALS: BP 102/62
[2017-03-22 07:36] VITALS: BP 101/56
[2017-03-22 12:01] VITALS: BP 120/70
--- NOTE | 2017-03-22 14:49 | CP SOUTH PROGRESS NOTE PSYCH ---
Psych (Inpt) Progress Note Progress Note Include the following elements, when applicable: Involvement in the active treatment of the patient with behavioral observations of the patient and the patient's response to the treatment. Review of the ongoing treatment process in the context of the treatment plan. Indication of how multi-disciplinary staff members are carrying out the treatment plan. Plans for future interventions and recommendations for revision of the treatment plan. Liaison with other physicians/providers. Progress Note: She stated that she is upset about her med changes; that she wants to continue her clonazepam when she is discharged. We discussed risk with methadone, and risk of overdose with a new lower dose on discharge. She was pleasant overall, was amenable to discussion. She had slept poorly, but understood it was likelty related to the med taper. No other issues. MSE: older woman, well groomed, pleasant and well related. No movement disorder or psychomotor agitation evident. Thought process is linear, content is free of delusional thinking, thoughts to harm self or anyone else. Her insight is fair, judgment is appropriate. Her mood is somewhat irritated but good overall. Plan: continue med taper as per primary team, agreeable to this (though not happy) and no other concerns currently.
[2017-03-22 15:46] VITALS: BP 128/74
[2017-03-22 20:38] VITALS: BP 115/67
[2017-03-23 07:37] VITALS: BP 118/73
[2017-03-23 12:14] VITALS: BP 107/69
--- NOTE | 2017-03-23 14:01 | CP SOUTH PROGRESS NOTE PSYCH ---
Psych (Inpt) Progress Note Progress Note Include the following elements, when applicable: Involvement in the active treatment of the patient with behavioral observations of the patient and the patient's response to the treatment. Review of the ongoing treatment process in the context of the treatment plan. Indication of how multi-disciplinary staff members are carrying out the treatment plan. Plans for future interventions and recommendations for revision of the treatment plan. Liaison with other physicians/providers. Progress Note: Stated that she feels mad about not being able to sleep, that she feels miserable being here. Stated that she does not want to taper her clonazepam, feels that it is the only thing that is helpful for her anxiety and sleep. Said that she does not want to take PRNs offered b/c she feels they are not helpful. She stated that no one is helping me, Im just going to go back to the same miserable place I was in before I got here.. We discussed med changes and offered changing doses of her other doses and she continued to decline, stating that nothing is helpful. I explained that her and primary team have made a plan to taper clonazepam and she can re-eval this plan if she continues to have sx of anxiety/insomnia. MSE: older woman, well groomed; tearful, easily frustrated today. Mood depressed , affect full, stable. No psychmotor changes evident. er thinking is linear and coherent. Her thought content is free of delusional thinking, though she is focused on her medication, feels depressed and that she is not getting better. Her insight is fair, judgment is appropriate. Plan: continue current med doses, encouraged her to discuss med changes w/ primary team; she continues to state that she does not want to further taper clonazepam. She was offered other medications/doses and did decline.
[2017-03-23 16:12] VITALS: BP 102/64
[2017-03-24 07:33] VITALS: BP 99/70
--- NOTE | 2017-03-24 12:18 | PN- Endocrinology ---
Assessment/Plan Assessment: She has a history of hypothyroidism, drug abuse and depression, wasn't on thyroid medication for a while, was admitted to for major depression disorder and suicidal ideation. She was supposed to be on Levothyroxine 175 mcg daily. Blood work done on 03/12/2017 showed TSH 87.8, free T4 0.13. On 03/15/2017, she was put on Levothyroxine 100 mcg daily. Repeat TFT on 03/18/2017 showed TSH 104 and free T4 0.19. Severe hypothyroidism is due to noncompliance of thyroid medication. Since 03/18/2017, she was on Levothyroxine 175 mcg daily. Repeat TSH was 85.2 and free T4 0.40. Levothyroxine was further increased to 200 mcg daily. On 03/24/2017, repeat TSH was 69.1 and free T4 was 0.51. Plan: Her TFT is improving; She will continue Levothyroxine 200 mcg daily for now; From thyroid standpoint, it is okay for patient to be discharged. However, it will be determined by psychiatric team whether she is ready to be discharged or not. Discharge plan for hypothyroidism: ---Levothyroxine 200 mcg daily; ---repeat TSH, free T4 next week and then in 4 weeks ---f/u in office after discharge. Subjective Subjective: She still feel upset and patient feels that she is not ready for discharge. Objective Last 24 Hrs of Vital Signs/I&O Vital Signs Date Time Temp Pulse Resp B/P B/P Pulse O2 O2 Flow FiO2 Mean Ox Delivery Rate 03/24 0733 98.9 71 99/70 03/23 1612 71 102/64 03/23 1214 72 107/69 Results Pertinent Lab/Lai Results: Laboratory Tests 03/24 0618 Chemistry TSH (0.270 - 4.200 uIU/mL) 69.100 H Free T4 (0.64 - 1.79 ng/dL) 0.51 L Thyroxine (T4) (4.5 - 10.9 ug/dL) 5.0
[2017-03-24] MEDS ORDERED: KLONOPIN0.5 M1 PO (12:26)
[2017-03-24] MEDS ORDERED: SYNTHROID200 MCG PO (12:26)
[2017-03-24] MEDS ORDERED: NICOTINE PATCH1 EAC3 TOP (12:26)
[2017-03-24] MEDS ORDERED: ABILIFY2 MG PO (12:26)
[2017-03-24] MEDS ORDERED: WELLBUTRIN SR100 M2 PO (12:26)
[2017-03-24 12:33] VITALS: BP 136/76
--- NOTE | 2017-03-24 14:17 | SOCIAL WORKER PROG NOTE PSYCH ---
Social Work Progress Note Progress Note Luz became stressed and upset when she became aware that she may discharge today. Dr. Valentine and I met with Luz together. She was upset because she didn't feel prepared and stated she had no way of getting into her apartment until 7pm today. Dr. Valentine agreed to discharge her tomorrow morning. This way we can secure her appt. with Dr. Godinez and make sure she can get home. Reviewed all of her follow up appt.'s with her. Will schedule [facility] for tomorrow at 11am. Luz was relieved that she will have more time to prepare for discharge for tomorrow. Dayanara Robbin [facility] called [employer] and informed me that she was denied based on medical necessity.
[2017-03-24 16:37] VITALS: BP 122/70
--- NOTE | 2017-03-24 17:00 | SOCIAL WORKER PROG NOTE PSYCH ---
Social Work Progress Note Progress Note [facility] set up for discharge home confirm # [id number] tomorrow at 11am. Pt had been approved for a PTR in 2014, if you want to resend it again the worker from [facility] stated adding all of the pts medical issues, for now she will get bus tokens, as the radius from bus stop is within the perimeters to not require livery. (0.75) she lives (0.5).
--- NOTE | 2017-03-24 17:23 | CP SOUTH PROGRESS NOTE PSYCH ---
Psych (Inpt) Progress Note Progress Note Include the following elements, when applicable: Involvement in the active treatment of the patient with behavioral observations of the patient and the patient's response to the treatment. Review of the ongoing treatment process in the context of the treatment plan. Indication of how multi-disciplinary staff members are carrying out the treatment plan. Plans for future interventions and recommendations for revision of the treatment plan. Liaison with other physicians/providers. Progress Note: PSYCHIATRIST NOTE, 03/24/2017: I discussed this patient's slow progress to date, current mental status, treatment and dsicharge planning with staff team today in the daily morning ITTTian and Ondina Maldonado LCSW, and I met with patient together in individual session. Patient was more disorganized, scattered than she had been when I last met with her on 03/21/2017. I had gone over the repeat TSH, TFT's from this morning with endocrine wellness consultant, Dr. Yousuf Godinez; the latter was pleased with the small improvements in thyroid function and slowly declining TSH, recommended continuing the current dose of Synthroid, 200mcg/day, with repeat visit with her and re-evaluation of thyroids in 2 weeks.
--- NOTE | 2017-03-24 18:35 | SOCIAL WORKER PROG NOTE PSYCH ---
Social Work Progress Note Progress Note COMPLETED [facility] ONLINE REVIEW - CHECK WEB FOR NEXT REVIEW DATE.
[2017-03-24 20:05] VITALS: BP 118/72
[2017-03-25 07:33] VITALS: BP 111/60
--- NOTE | 2017-03-25 09:06 | SOCIAL WORKER PROG NOTE PSYCH ---
Social Work Progress Note Progress Note Called [facility] to let them know Luz would be discharging today. They can see her later this afternoon. Haroldo Harrington (supervisor gelatin plant) asked if there would be a supervising psychiatrist in the community willing to sign ongoing orders. I told him I would ask Nohemi Huffman APRN and get back to him. Called and left a message with Nohemi. Informed Luz that the PTR form was denied by [facility] [place], but we will submit another form today and try again. Encouraged her to follow up with [facility] in a couple of days to see if it's been accepted. She said she will continue to leave the house early and get the bus to go to [facility]. Informed her that the visiting nurse will see her this afternoon. She would like the nurse to pear picker her meds. Luz seemed to be in a good place today. She was prepared to go home and mood/ affect was appropriate. Called [facility], Haroldo Harrington said meds can be called into [facility] in [place]. There was a problem with Luz's [facility] transportation. I needed to call again to set it up for today. She was picked up early afternoon. W-10 and discharge info faxed to [facility], [facility], [facility], and Nohemi Huffman APRN.
[2017-03-25] MEDS ORDERED: GABAPENTIN300 M2 PO (10:50)
[2017-03-25] MEDS ORDERED: ABILIFY5 M1 PO (10:50)
[2017-03-25] MEDS ORDERED: SYNTHROID200 MCG PO (10:57)
[2017-03-25] MEDS ORDERED: RITALIN10 MG PO (10:57)
--- NOTE | 2017-03-25 14:29 | DISCHARGE SUMMARY REPORT-PSYCH ---
Visit Information Visit Dates/Diagnosis' Admission Date: 03/14/17 Discharge Date: 03/25/17 Reason for Admission: " Psy Discharge Primary Diag: Unspecified Depression R/O contribution to mood symptoms from polydrug use disorders and also dependence on abusable prescribed medications Psy Discharge Secondary Diag: longstanding noncompliant behavior (not taking her Synthroid for extended period of time [employer] Borderline Personality Opioid Use Disorder; in sustained full remission on agonist therapy with methadone Cannabis Use Disorder Cannabis Intoxication Stimulant (amphetamine) Dependence; R/O abuse Sedative/Hypnotic/ Anxiolytic Dependence (on rx'd Klonopin despite longtime methadone maintenance Hepatitis C (+) in 2013 Hospital Course Course Allergies: Coded Allergies: chlorpromazine (From THORAZINE) (SEVERE RESP. DISTRESS 03/12/17) haloperidol (From HALDOL) (SEVERE RESP. DISTRESS 03/12/17) prochlorperazine (From COMPAZINE) (DYSTONIC REACTION 03/12/17) Discharge HBIPS - Tobacco Use Treatment Offered - EtOH/Drug Use D/O Treatment Offered Metabolic Screening - Screen if on a Neuroleptic Medication - Metabolic screening should include: - Blood Pressure, BMI, Glucose or Hgb A1c, & a - Lipid profile from within the past 365 days.
--- NOTE | 2017-03-25 14:29 | CP SOUTH PROGRESS NOTE PSYCH ---
Psych (Inpt) Progress Note Progress Note Include the following elements, when applicable: Involvement in the active treatment of the patient with behavioral observations of the patient and the patient's response to the treatment. Review of the ongoing treatment process in the context of the treatment plan. Indication of how multi-disciplinary staff members are carrying out the treatment plan. Plans for future interventions and recommendations for revision of the treatment plan. Liaison with other physicians/providers. Progress Note: PSYCHIATRIST NOTE (DISCHARGE), 03/25/2017: I discussed this patient's slow but significant progress to date, current mental status, treatment and discharge planning with staff team today in the daily morning ITTM and also met with her again myself in individual session prior to discharging her to
== END 2017-03-25 11:59 | DRG 754 ==
LOC: ERH 18:26 → ERHI 03-14 14:42 → CP SOUTH 03-14 14:42 → ENRESERV 03-14 18:00 → CP SOUTH 03-17 10:04
PROVIDERS: Physician Assistant Medical; ADMIT Psychiatry & Neurology Psychiatry
DX: F32.9 Major depressive disorder, single episode, unspecified (principal); F11.20 Opioid dependence, uncomplicated; Z91.128 Patient's intentional underdosing of medication regimen for other reason; F15.20 Other stimulant dependence, uncomplicated; F60.3 Borderline personality disorder; T38.1X6A Underdosing of thyroid hormones and substitutes, initial encounter; F12.929 Cannabis use, unspecified with intoxication, unspecified; B18.2 Chronic viral hepatitis C
CPT/HCPCS: 36415; 73130-RT; 80307; 81025; 93005; 93010; 96372; G0480; J3490

== ENCOUNTER 2018-01-29 10:59 | Inpatient (IN) | payer OTHER ==
[~2018-01-29] VITALS: Ht 160 cm; Wt 74.6 kg
[~2018-01-29 10:59] MED LIST changes: +ABILIFY2 MG PO; +ABILIFY5 M1 PO; +ADDERALL XR 2020 MG PO; +BUPROPION HCL150 M4 PO; +BUPROPION XL150 MG PO; +BUSPIRONE HCL15 M1 PO; +CLONAZEPAM0.5 M2 PO; +CRANBERRY450 M3 PO; +DEXTROAMP-AMPHE20 MG PO; +GABAPENTIN300 M2 PO; +HYDROXYZINE HCL25 M2 PO; +KLONOPIN0.5 M1 PO; +METHADONE10 MG/1 M2 PO; +METHADONE10 MG/5 M2 PO; +NICOTINE PATCH1 EAC3 TOP; +Nicoderm TOP; +OLANZAPINE5 M2 PO; +RITALIN10 MG PO; +SYNTHROID200 MCG PO; +VITAMIN B COMP1 EACH PO; +WELLBUTRIN SR100 M2 PO; +ZOLOFT100 M1 PO
--- NOTE | 2018-01-29 11:08 | ED PSYCHIATRIC COMPLAINT ---
See Addendum History of Present Illness General Chief Complaint: Psychiatric Related Complaint Stated Complaint: BIBA +SI Source: patient Exam Limitations: no limitations Vital Signs & Intake/Output Vital Signs & Intake/Output Vital Signs Date Time Temp Pulse Resp B/P B/P Pulse O2 O2 Flow FiO2 Mean Ox Delivery Rate 01/29 1707 98.9 94 18 128/67 95 Room Air 01/29 1326 98.0 80 20 105/64 98 Room Air 01/29 1114 98.8 82 18 117/74 98 Room Air Allergies Coded Allergies: cephalexin (Mild, hives 08/21/17) chlorpromazine (From THORAZINE) (SEVERE RESP. DISTRESS 08/20/17) haloperidol (From HALDOL) (SEVERE RESP. DISTRESS 08/20/17) prochlorperazine (From COMPAZINE) (DYSTONIC REACTION 08/20/17) Triage Nurses Notes Reviewed? yes Onset: Abrupt Duration: day(s):, constant, continues in ED Timing: recent history Severity: moderate, severe HPI: 47-year-old female comes into the emergency room reporting severe depression and feeling hopeless and some thoughts of suicide. She has a history of substance abuse. She was recently discharged from a detox facility. She had relapsed on heroin crack cocaine and benzodiazepines. She reports that her is not sure whether she wants her home at this time. She is currently living with). She is feeling hopeless. Past history of suicide attempts. She reports that if she were to hurt herself she would do with chills. (Justino PERES,Domenico) Reconcile Medications Bupropion HCl (Bupropion HCl Sr) 150 MG TABLET.ER 1 TAB PO BID depression Gabapentin 300 MG CAPSULE 1 TAB PO 4 TIMES/DAY anxiety agitation Hydroxyzine Hydrochloride (Atarax) 25 MG TAB 25 MG PO AT BEDTIME PRN SLEEP Levothyroxine Sodium (Synthroid) 200 MCG TABLET 1 TAB PO DAILY AC for hypothyroidism Methadone HCl 10 MG/ML ORAL.CONC 30 MG PO DAILY OPIOID DEPENDENCE (Reported) Olanzapine 5 MG TABLET 1 TAB PO BID mood stability (Reported) Sertraline HCl (Zoloft) (Unknown Strength) TABLET 100 MG PO DAILY depression (Reported) (Luisito Elizabeth DO) Past History Medical History Any Pertinent Medical History? see below for history Neurological: NONE EENT: NONE Cardiovascular: NONE Respiratory: NONE Gastrointestinal: NONE Hepatic: hepatitis C, ANTIBODY Renal: NONE Musculoskeletal: sciatica, LUMBAGO Psychiatric: anxiety, bipolar disease, depression, IV drug abuse, opioid dependence, substance abuse, ADHD Endocrine: hypothyroidism Blood Disorders: NONE Cancer(s): NONE LOT BOSS/Reproductive: NONE History of MRSA: No History of VRE: No History of CDIFF: No Influenza Vaccine: 08/21/17 Tetanus Vaccine: 12/01/12 Surgical History Surgical History: non-contributory Psychosocial History Who do you live with Other (see notes) Services at Home None What is your primary language Slovenian Family History Family History, If Any: Relation not specified for: *No pertinent family history Hx Contributory? No (Domenico Green) Review of Systems Review of Systems Constitutional: Reports: no symptoms. EENTM: Reports: no symptoms. Respiratory: Reports: no symptoms. Cardiovascular: Reports: no symptoms. GI: Reports: no symptoms. Genitourinary: Reports: no symptoms. Musculoskeletal: Reports: no symptoms. Skin: Reports: no symptoms. Neurological/Psychological: Reports: see HPI. Hematologic/Endocrine: Reports: no symptoms. Immunologic/Allergic: Reports: no symptoms. All Other Systems: Reviewed and Negative (Domenico Green) Physical Exam Physical Exam General Appearance: well developed/nourished, anxious, mild distress, crying Head: atraumatic Eyes: Bilateral: normal appearance. Ears, Nose, Throat: normal ENT inspection, hearing grossly normal Neck: normal inspection Respiratory: normal breath sounds Cardiovascular: regular rate/rhythm Extremities: normal range of motion Neurological/Psychiatric: awake, alert, calm Appearance/Memory/Insight: disheveled, impaired insight Behavoir/Eye Contact/Speech: cooperative Thoughts/Hallucinations: no apparent hallucination Skin: intact, normal color, warm/dry SAD PERSONS SAD PERSONS Response Value Depression/Hopelessness? yes 2 Previous Attempts/Psych Care yes 1 Excessive Ethanol/Drug Use? yes 1 Rational Thinking Loss? yes 2 Single//? yes 1 Social Support? has no support 1 Stated Future Intent? yes 2 Total 10 SAD PERSONS Done? yes (Domenico Green) Progress Differential Diagnosis: dementia, drug intoxication, drug overdose, drug withdrawal, depression, bipolar Plan of Care: Orders Procedure Date/time Status Regular Diet 05/04 B Active Regular Diet 01/29 D Complete Lab Add-on Test 01/29 1651 Active Patient Data - inpatient psych 01/29 1642 Active Admit to inpatient psych 01/29 1642 Active Intake & Output 01/29 1135 Active TSH REFLEX 01/29 1126 Active ED CRISIS PSYCH CONSULT 01/29 1105 Active Continuous Observation Monitor 01/29 1102 Active URINE DRUGS OF ABUSE 01/29 110 Complete URINE 01/29 110 Complete ETHANOL 01/29 1102 Active COMPREHENSIVE METABOLIC PANEL 01/29 1102 Active CBC WITHOUT DIFFERENTIAL 01/29 1102 Complete Vital Signs 01/29 UNK Active Alternative Nursing Therapy 01/29 UNK Active Activity/Ambulation 01/29 UNK Active Current Medications Sig/Zaire Start time Last Medication Dose Stop Time Status Admin Methadone HCl 65 MG ONCE ONE 01/30 0800 AC (Dolophine) 01/30 0801 Sertraline HCl 100 MG 0800 01/30 0800 AC (Zoloft) Levothyroxine Sodium 0.2 MG DAILY AC 01/30 0700 AC (Synthroid) Olanzapine 5 MG BID 01/29 2100 AC (Zyprexa) Bupropion HCl 150 MG BID@0800,1700 01/29 1700 AC (Wellbutrin SR) Hydroxyzine HCl 25 MG AT BEDTIME NEED.. 01/29 1700 AC (Atarax) Acetaminophen 650 MG Q6P PRN 01/29 1645 AC (Tylenol) Al Hydroxide/Mg 30 ML Q4-6 PRN PRN 01/29 1645 AC Hydroxide (Maalox Plus) Gabapentin 300 MG Q6P PRN 01/29 1645 AC (Neurontin) Lorazepam 2 MG Q6P PRN 01/29 1645 AC (Ativan) Magnesium Hydroxide 30 ML AT BEDTIME PRN 01/29 1645 AC (Milk Of Magnesia) Nicotine 21 MG DAILY 01/29 164 AC (Nicoderm) Olanzapine 10 MG Q12P PRN 01/29 1645 AC (Zyprexa) Olanzapine 10 MG Q12P PRN 01/29 1645 AC (ZyPREXA) Laboratory Tests 01/29/18 1253: Urine Opiates Screen > 4000.00 H, Methadone Screen > 735 H, Barbiturate Screen 70, Ur Phencyclidine Scrn < 6.00, Amphetamines Screen 282, U Benzodiazepines Scrn 99, Urine Cocaine Screen > 1000 H, Urine Cannabis Screen 26.40, Urine Test NEGATIVE 01/29/18 1126: Anion Gap 10, Estimated GFR > 60, BUN/Creatinine Ratio 11.4, Glucose 107 H, Calcium 9.2, Total Bilirubin 0.5, AST 50 H, ALT 29, Alkaline Phosphatase 73, Total Protein 7.6, Albumin 4.3, Globulin 3.3, Albumin/Globulin Ratio 1.3, TSH & T3 &Free T4 Intrp Pending, CBC w Diff NO MAN DIFF REQ, RBC 4.62, MCV 80.0 L, MCH 25.6 L, MCHC 32.0 L, RDW 19.9 H, MPV 7.8, Gran % 72.1, Lymphocytes % 20.2 L, Monocytes % 5.7, Eosinophils % 1.3, Basophils % 0.7, Absolute Granulocytes 4.4, Absolute Lymphocytes 1.2, Absolute Monocytes 0.3, Absolute Eosinophils 0.1, Absolute Basophils 0, Serum Alcohol < 10.0 (Domenico Green) Departure Departure Disposition: STILL A PATIENT Condition: Stable Clinical Impression Primary Impression: Depression Referrals: Eri Jones MD (PCP/Family) Departure Forms: Customer Survey General Discharge Information Psych Admission Note Psychiatric Admission: I have seen and evaluated SHANI CARDONA. I have also reviewed all the pertinent lab results and diagnostic results. SHANI CARDONA will be admitted to our inpatient Psychiatric unit for treatment and care. (Domenico Green) PA/CARE ASSISTANT Co-Sign Statement Statement: ED Attending supervision documentation- [] I saw and evaluated the patient. I have also reviewed all the pertinent lab results and diagnostic results. I agree with the findings and the plan of care as documented in the PA's/CARE ASSISTANT's documentation. [X] I have reviewed the ED Record and agree with the PA's/CARE ASSISTANT's documentation. [] Additions or exceptions (if any) to the PAs/CARE ASSISTANT's note and plan are summarized below: [] (Luisito Elizabeth DO)
[2018-01-29 11:38] LABS: ABSOLUTE BASOPHIL COUNT 0 /CUMM (0.0-0.2); ABSOLUTE EOSINOPHIL COUNT 0.1 /CUMM (0.0-0.7); ABSOLUTE GRANULOCYTE CT 4.4 /CUMM (1.4-6.5); ABSOLUTE LYMPH COUNT 1.2 /CUMM (1.2-3.4); ABSOLUTE MONOCYTE COUNT 0.3 /CUMM (0.10-0.60); BASOPHIL % 0.7 % (0.0-2.0); EOSINOPHIL % 1.3 % (0-5); GRANULOCYTE % 72.1 % (42.2-75.2); MEAN CORPUSCULAR HGB 25.6 PG (27.0-31.0); MEAN PLATELET VOLUME 7.8 FL (7.4-10.4); PLATELET COUNT 320 /CUMM (130-400); RBC DISTRIBUTION WIDTH 19.9 % (11.5-14.5); RED BLOOD CELL CT 4.62 /CUMM (4.20-5.40)
--- NOTE | 2018-01-29 15:26 | ED PSYCH CRISIS CONSULTATION ---
Crisis Consult Basic Assessment Date of Consult: 01/29/18 Responsible Person/Accompanied By: self Insurance Authorization: Insurance #1: Insurance name: JULIA KWON Phone number: Policy number: [id number] Group number: Authorization number: ED Provider: Patient's ED Provider: Domenico Green Primary Care Physician: Patient's PCP: Eri Jones MD PCP's Current Psychiatrist: last receiving medication tx at [facility] Chief Complaint: Psychiatric Related Complaint Patient's Quote: I'm too delicate for this life right now. Present Illness: Pt is a 47 yo female biba to [facility] ED this afternnon with report of increased depression and SI with stated plan to overdose on pills. Pt reports a hx of prior intentional o/d attempts as has previously beed admitted to [facility] X5 since 2014. Pt was last discharged from [facility] on 09/17/17 and has been at [facility] and [facility] from Aug- December 2017. Pt reports she had been compliant with her recovery and psychiatrically stable until she reports she prematurely discharged herself from [facility] 2 weeks ago. She reports her kept encouraging her to come back home but she reports after she was home for two days he told her he made a mistake and she needed to live elsewhere. She reports he dropped her off at a friends who is a crack user and she soon relapsed. She reports past week using heroin and crack cocainer daily. She reports feeling bad about herself and states "I can't do it. I'm too delicate for this life". Pt reports depression 8/10 and anxiety 8/10. Pt reports feeling hopeless, helpless and worthless. CSSRS completed. Pt primary protective factor is her children. Pt reports she has maintained medication compliance since her last [facility] admission and still taking Wellbutrin, Neurtonin, Zoloft, Zyprexa, Vistaril and synthroid. Pt also continues to be on methadone 70mg and had her last dose yesterday. Pt reports wanting to get mentally stable and then return to a rehab program. Case reviewed with Dr Nguyen. Pt recommended for inpatient psychiatric treatment. Pt agrres with plan and has signed voluntary form for admission to [facility]. Patient's Address: [address] [place] [address] Home Phone Number: NONE Other Phone Number: Who Do You Live With? Other (see notes) Family/Informants Interviewed: Collateral provided by Bob [phone]. He reports requesting pt leave residential rehab prior to completing program. He reports she agreed but after 2 days home decided it was a mistake and he thought it was best that they separate and she move out. He reports driving her to stay at one of her friend's homes. At this time he doesn't plan on reconciling. Allergies - Coded Allergies: cephalexin (Mild, hives 08/21/17) chlorpromazine (From THORAZINE) (SEVERE RESP. DISTRESS 08/20/17) haloperidol (From HALDOL) (SEVERE RESP. DISTRESS 08/20/17) prochlorperazine (From COMPAZINE) (DYSTONIC REACTION 08/20/17) Current Medications - Scheduled Medications Bupropion HCl (Bupropion HCl Sr) 150 MG TABLET.ER 1 TAB PO BID depression #30 TAB Prescribed by Eddi Ku on 09/01/17 Last Taken: 01/29/18 Gabapentin 300 MG CAPSULE 1 TAB PO 4 TIMES/DAY anxiety agitation #180 TAB Prescribed by Torrey Nguyen MD on 09/17/17 Last Taken: 01/29/18 Levothyroxine Sodium (Synthroid) 200 MCG TABLET 1 TAB PO DAILY AC for hypothyroidism #15 TAB Prescribed by Eddi Ku on 09/01/17 Last Taken: 01/29/18 Methadone HCl 10 MG/ML ORAL.CONC 30 MG PO DAILY OPIOID DEPENDENCE (Reported) Entered as Reported by Mariama Davis on 09/11/171711 Olanzapine 5 MG TABLET 1 TAB PO BID mood stability (Reported) Entered as Reported by Mariama Davis on 09/11/172033 Last Taken: 01/29/18 Sertraline HCl (Zoloft) (Unknown Strength) TABLET 100 MG PO DAILY depression (Reported) Entered as Reported by Katherine Herrera on 09/11/172215 Last Taken: 01/29/18 Scheduled PRN Medications Hydroxyzine Hydrochloride (Atarax) 25 MG TAB 25 MG PO AT BEDTIME PRN SLEEP #14 TAB Prescribed by Torrey Nguyen MD on 09/17/17 Last Taken: 01/29/18 Laboratory Results: Laboratory Tests 01/29/18 1253: Urine Opiates Screen > 4000.00 H, Methadone Screen > 735 H, Barbiturate Screen 70, Ur Phencyclidine Scrn < 6.00, Amphetamines Screen 282, U Benzodiazepines Scrn 99, Urine Cocaine Screen > 1000 H, Urine Cannabis Screen 26.40, Urine Test NEGATIVE 01/29/18 1126: Anion Gap 10, Estimated GFR > 60, BUN/Creatinine Ratio 11.4, Glucose 107 H, Calcium 9.2, Total Bilirubin 0.5, AST 50 H, ALT 29, Alkaline Phosphatase 73, Total Protein 7.6, Albumin 4.3, Globulin 3.3, Albumin/Globulin Ratio 1.3, CBC w Diff NO MAN DIFF REQ, RBC 4.62, MCV 80.0 L, MCH 25.6 L, MCHC 32.0 L, RDW 19.9 H, MPV 7.8, Gran % 72.1, Lymphocytes % 20.2 L, Monocytes % 5.7, Eosinophils % 1.3, Basophils % 0.7, Absolute Granulocytes 4.4, Absolute Lymphocytes 1.2, Absolute Monocytes 0.3, Absolute Eosinophils 0.1, Absolute Basophils 0, Serum Alcohol < 10.0 Past History Past Medical History Neurological: NONE EENT: NONE Cardiovascular: NONE Respiratory: NONE Gastrointestinal: NONE Hepatic: hepatitis C, ANTIBODY Renal: NONE Musculoskeletal: sciatica, LUMBAGO Psychiatric: anxiety, bipolar disease, depression, IV drug abuse, opioid dependence, substance abuse, ADHD Endocrine: hypothyroidism Blood Disorders: NONE Cancer(s): NONE 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 Patient expressed motivation to follow up with treatment upon discharge Physical Limitations (Interventions): None Psychiatric Treatment History Psych Treatment Psychiatric Treatment Yes Inpatient Treatment Yes Outpatient Treatment Yes Location of Treatment [facility] [place] Reason for Treatment Depression polysubstance abuse Dates of Treatment [place] 2002; [facility] x5 since 2014; last admission 09/14 Response to Treatment pt has struggled with maintaining sobriety and treatment compliance Diagnosis by History: PTSD, ADHD, Mood disorder NOS, Polysubstance abuse and Borderline Personality Disorder Substance Use/Abuse History Drug Use/Abuse 1 Substances Used/Abused Yes Substance Used/Abused Heroin Last Used yesterday How often daily past week Route of use IV Drug Use/Abuse 2 Substances Used/Abused Yes Substance Used/Abused Cocaine Last Used yesterday How often daily For how long past week Route of use smoke crack Drug Use/Abuse 3 Substances Used/Abused Yes Substance Used/Abused Prescribed Opiates Last Used yesterday How much used/taken 70 mg methadone How often daily Substance Abuse Treatment Substance Abuse Treatment Past Substance Abuse TX Yes Inpatient Treatment Yes Outpatient Treatment Yes Location of Treatment [facility], [facility] Reason for Treatment Opiate/Cociane/Marijuana Response to Treatment pt reports recent successful treatment Aug; [facility] to [facility] to [facility]. Pt relapsed last week Comments: pt reports wanting to readmit to rehab once psychiatrically stable Current Mental Status Mental Status Orientation: Person, Place, Situation Affect: Depressed Speech: WNL Neuro-vegetative: Appetite Decreased, Energy Decreased, Helpless, Loss of Interest, Sleep Disturbance Behaviors Thought Process: WNL Thought Content: WNL Memory: WNL Insight: Fair SI/HI Risk Assessment Past Suicidal Ideation/Attempts Yes Current Suicidal Ideation/Att Yes Past Homicidal Ideation/Att: No Current Homicidal Ideation/Attempts No Degree of Intent: States Intent Danger To: Self Gravely Disabled: Poor Impulse Control, Poor Judgment Risk Factors: access to lethal means, high anxiety/distress, history of suicide atmpts, SA/MH hospitalized, substance abuse, isolate/no social support, poor impulse control, limited support Lethality Ratin PTSD Checklist PTSD Done? patient declined ED Management Sitter: Yes Restraints: No DSM5/PS Stressors/Medical Prob Diagnosis' (DSM 5, Stressors, Medical): Unspecified Depression d/o F32.9 Opiate Use D/O F 11.20 Cocaine Use D/O F14.20 marital conflict homeless hearing impaired Current GAF: 20 Comments: pt reports relapse last week after 4 months clean. Pt d/c from [facility] to [facility] then to [facility]. Pt reports she was doing well but requested discharge from [facility] (mid December) prematurely and after conflict with moved out and relapsed. Departure Disposition Psych Medical Clearance Date: 01/29/18 Medically Cleared at: 1430 Time Started: 1430 Time Ended: 1515 Psychiatrist Consulted: Torrey Nguyen MD Date Disposition Established: 01/29/18 Time Disposition Established: 1700 Plan for Disposition - Modality: Inpatient Psychiatry Facility: [facility] Rationale for Disposition: mood stabilization; medication assessment; detox Type of IP Admission: Voluntary Additional Instructions: pt is aware her methadone may be tapered down due to her positive tox screen Referrals Karen SILVA,Eri Colon (PCP/Family)
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
[2018-01-29 22:26] VITALS: BP 118/68
[2018-01-29 23:03] VITALS: BP 118/68
[2018-01-30 07:32] VITALS: BP 101/76
[2018-01-30 12:13] VITALS: BP 104/62
--- NOTE | 2018-01-30 13:19 | History & Physical ---
General Information and HPI History of Present Illness: This young female came into the hospital because of feeling more depressed and polysubstance drug abuse. She admits to using narcotics and intravenous drugs as well as smoking crack cocaine and came to the hospital for increased depression. She denies any physical complaints of any specific pains or aches. She reports that she has a history of hypothyroidism and has been taking her Synthroid regularly at a dose of 200 g daily. Her TSH is somewhat low on admission on the blood work done yesterday. Her previous TSH in the record have been high probably from noncompliance with the medication a few months ago. He admits to smoking about half a pack of cigarettes a day and claims she is and lives with her and 2 children. Her children are 9 and 5 years old and in good health. She denies any specific other family illness or past history. Allergies/Medications Allergies: Coded Allergies: cephalexin (Mild, hives 08/21/17) chlorpromazine (From THORAZINE) (SEVERE RESP. DISTRESS 08/20/17) haloperidol (From HALDOL) (SEVERE RESP. DISTRESS 08/20/17) prochlorperazine (From COMPAZINE) (DYSTONIC REACTION 08/20/17) Home Med list Bupropion HCl (Bupropion HCl Sr) 150 MG TABLET.ER 1 TAB PO BID depression Gabapentin 300 MG CAPSULE 1 TAB PO 4 TIMES/DAY anxiety agitation Hydroxyzine Hydrochloride (Atarax) 25 MG TAB 25 MG PO AT BEDTIME PRN SLEEP Levothyroxine Sodium (Synthroid) 200 MCG TABLET 1 TAB PO DAILY AC for hypothyroidism Methadone HCl 10 MG/ML ORAL.CONC 30 MG PO DAILY OPIOID DEPENDENCE (Reported) Olanzapine 5 MG TABLET 1 TAB PO BID mood stability (Reported) Sertraline HCl (Zoloft) (Unknown Strength) TABLET 100 MG PO DAILY depression (Reported) Past History Travel History Traveled to [place] past 21 day No Medical History Neurological: NONE EENT: NONE Cardiovascular: NONE Respiratory: NONE Gastrointestinal: NONE Hepatic: hepatitis C, ANTIBODY Renal: NONE Musculoskeletal: sciatica, LUMBAGO Psychiatric: anxiety, bipolar disease, depression, IV drug abuse, opioid dependence, substance abuse, ADHD Endocrine: hypothyroidism Blood Disorders: NONE Cancer(s): NONE 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 Ambulation: independent Review of Systems Review of Systems Constitutional: Denies: no symptoms. EENTM: Denies: no symptoms. Cardiovascular: Denies: no symptoms. Respiratory: Denies: no symptoms. GI: Denies: no symptoms. Genitourinary: Denies: no symptoms. Musculoskeletal: Denies: no symptoms. Skin: Denies: no symptoms. Neurological/Psychological: Reports: see HPI, anxiety, depressed, emotional problems. Hematologic/Endocrine: Denies: no symptoms. Exam & Diagnostic Data Last 24 Hrs of Vital Signs/I&O Vital Signs Date Time Temp Pulse Resp B/P B/P Pulse O2 O2 Flow FiO2 Mean Ox Delivery Rate 01/30 1213 79 104/62 / 0732 97.7 79 101/76 05/03 2303 97.9 73 118/68 05/03 2226 97.9 73 118/68 05/03 2205 98.4 85 16 104/76 98 Room Air / 1929 98.3 88 16 119/68 96 Room Air / 1707 98.9 94 18 128/67 95 Room Air 05/ 1326 98.0 80 20 105/64 98 Room Air Intake & Output 01/30 1600 05/04 0800 05/ 0000 Intake Total Output Total Balance Patient 164 lb Weight Physical Exam General Appearance Alert, Oriented X3, Cooperative, No Acute Distress Skin No Rashes, No Breakdown, No Significant Lesion HEENT Atraumatic, PERRLA, EOMI, Mucous Membr. moist/pink Neck Supple, No JVD, No thryomegaly, +2 Carotid Pulse wo Bruit Lymphatic Cervical nl Cardiovascular Regular Rate, Normal S1, Normal S2, No Murmurs, Gallops, Rubs Lungs Clear to Auscultation, Normal Air Movement Abdomen Normal Bowel Sounds, Soft, No Tenderness, No Hepatospenomegaly, No Masses Neurological Exam Findings: Normal Gait, Normal Speech, Strength at 5/5 X4 Ext, Normal Tone, Cranial Nerves 3-12 NL, Reflexes 2+ Cranial Nerves II through XII: Within normal limits and intact Extremities No Clubbing, No Cyanosis, No Edema, No Tenderness/Swelling Assessment/Plan Assessment: This young female is admitted to the hospital with polysubstance abuse and depression and nonspecific psychosis. From medical standpoint she is fairly stable without any acute illness. She is taking her levothyroxin 200 g daily and she seems to be taking it regularly. Her TSH is low and her free T4 and total T3 are on the higher side of normal and we should cut down the dose somewhat down to 150 g or so which might bring her TSH to normal and still keep the free thyroxine level within normal limits. Her blood work needs to be repeated in about 6 weeks after adjustment of the dose but otherwise she is in stable medical condition without any other acute problems. She has a history of hepatitis C and her AST is only minimally elevated and the rest of the liver functions are normal and she does not require any medicine at this time. As Ranked By This Provider Problem List: 1. METHADONE MAINTENANCE 2. Anxiety 3. Depression 4. Hypothyroid 5. Polysubstance abuse 6. Mood disorder Miscellaneous Miscellaneous Documentation Attending Case Discussed With: Torrey Nguyen MD Primary Care Physician: Eri Jones MD Patient sees these Specialists none Level of Patient Care: NALLELY Miner Attending Review Statement Attending Statement Attending MD Statement: examined this patient, reviewed EMR data (avail), discussed with nursing Attending Assessment/Plan: This young female is admitted for polysubstance abuse as well as depression and mood disorder. From medical standpoint she has hypothyroidism and history of hepatitis C. Her TSH is low and we should cut down the dose of her levothyroxine to 150 g and she will need to repeat blood work in about 6 weeks or so. There is no other medical problem at this time and she does not require any other treatment or workup from medical standpoint and will be seen as needed.
--- NOTE | 2018-01-30 15:46 | SOCIAL WORKER PROG NOTE PSYCH ---
Social Work Progress Note Progress Note Crisis international trade analyst Susanne Bird attempted to obtain the pt's social history but pt stated to come back later.
[2018-01-30 16:08] VITALS: BP 103/72
--- NOTE | 2018-01-30 16:18 | SOCIAL WORKER PROG NOTE PSYCH ---
Social Work Progress Note Progress Note This proposal lead writer met with patient. She reported feeling "really depressed." She stated that she had completed [place] and transferred to [facility] residential. She stated that he encouraged her to leave [facility], which she did, only to be told by him that she could not stay with him and found herself homeless. She stated that she relapsed with last use occurring yesterday (crack and Heroin). Patient stated that she would like to be referred back to [facility] and [facility] as well as both crisis and respite locations (see referral information below). Patient denied SI today, she denied HI/AH/VH. Patient stated that she discussed anticipated discharge as Friday02/02/[address] Nguyen. Referrals: - [facility], referral and admission form and medication list - Chip Ca, , 01/30/18 at 1508 - [place], , 01/30/18 at 1500 - History and Physical, Diagnostic Assessment and Medication List - [facility], at 1500 (two attempts were made to fax documents to [phone], however number was busy and this proposal lead writer was provided with the [phone] number by calling [facility]) - [facility], at [phone]
--- NOTE | 2018-01-30 16:56 | CPS PROVIDER INIT ASMT PSYCH ---
Psychiatric Admission Field Merchandiser's Note Reviewed: Yes Patient Seen and Examined: Yes (Seen with medical student.) Identifying Information: 47 yo MWF with depression, opioid use d/o, cocaine use d/o, hypothyroidism, congenital hearing loss and hx hepatitis C, admitted on 01/29/18 on a voluntary basis, referred by ER. Chief Complaint: SI. Homeless. Reaction to Hospitalization: Well, if I had to be anywhere, it would be here, because I feel safe here." History of Present Illness Onset of Illness: Chronic. Relapsed a couple of weeks ago. Circumstances Leading to Admission: Left [facility] prematurely to return to live with and children but changed his mind after a couple of days and dropped patient off at the home of a female friend who uses. Patient relapsed. Problem(s) Justifying Need for Admission: Suicidal ideation. Depressed mood. Other HPI: Patient reports she was in rehab and was doing really well until asked her to come home. She was home with family for 2 days and decided he had made a rash decision to take her home and he dropped her off at a friend's house. Reports that she relapsed and she is not feeling good about it or what her did to her. States it was not right, was unfair and she is really upset about it. She is proud that she did not return to using benzodiazepines. Reports she had suicidal ideation just yesterday. Reports sleep is okay, appetite is good and energy is low. Patient believes she has some gabapentin withdrawal and asked that I order gabapentin as she was taking it in the community, at 900 mg 4 times a day. I have done so. Case and treatment plan discussed in team meeting. Staff reports that the patient is denying suicidal ideation. Appearing well. Past Psychiatric History Past Diagnosis(es)- if any: Unspecified depression. Opioid use disorder on MMP. Cannabis use disorder. Hypothyroidism. Congenital bilateral hearing loss. History of hepatitis C. Past Precipitating Factors- if any: Suicidal ideation. Substance abuse. - Include inpatient and outpatient treatment Treatment History: Patient reports that she went to a [place] are left there in in September 2017. She then went to [facility] and left there about 2 weeks ago. Not engaged in outpatient treatment but does go to [facility] for methadone maintenance. History of about 30 psychiatric hospitalizations including to [place], [facility] and various facilities in [place]. History of Suicide Attempts or Gestures History of 3 suicide attempts by pill overdose, last one was about 4 years ago. Substance Abuse History: Tobacco: about 0.5 packs per day. Alcohol: None. Cannabis: None since August 2017. Cocaine: 4-5 bags per day for about 2 weeks, smoked. Heroin: a couple of bags a day IV with clean needles 2 weeks. Allergies: Coded Allergies: cephalexin (Mild, hives 08/21/17) chlorpromazine (From THORAZINE) (SEVERE RESP. DISTRESS 08/20/17) haloperidol (From HALDOL) (SEVERE RESP. DISTRESS 08/20/17) prochlorperazine (From COMPAZINE) (DYSTONIC REACTION 08/20/17) Home Med List: Zoloft 100 mg every morning Levothyroxine 200 mcg daily Olanzapine 5 mg twice daily Bupropion SR 150 mg twice daily Hydroxyzine 25 mg nightly Gabapentin 900 mg 4 times daily Methadone 70 mg daily - Include any medical condition(s) that may - impact the patient's recovery/remission Past Medical History: Hepatitis C antibody Sciatica Lumbago Hypothyroidism Bilateral congenital hearing loss. 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 Substance Use: Denies. Suicides: Denies. Social History Living Situation: Homeless. Was staying with a female friend who uses crack and heroin. Wants to go to [facility] then to [place]. Significant Relationships (family/friends): Parents when patient was 6 years old. Both parents live in [place]. Patient is the oldest of 6 children. Patient is and has a 9-year-old daughter and a 5-year-old son. Education: 10th grade education. Vocation/Occupation: On disability for mental health. Legal: Denies history of arrests. Healthly Behaviors Screening Tobacco Screening Tobacco Use from ED Docu: Current Daily Use Daily Tobacco Use Amount/Type: => 5 Cigarettes daily - If tobacco counseling indicated - the following topics are required. - #1 Recognizing dangerous situations. - #2 Coping Skills. - #3 Basic information about quitting. Status of Tobacco Cessation Counseling: #1, #2 AND #3 Completed Cessation Med Status Nicotine Patch Ordered Alcohol Screening - ETOH screen POS if BAL >=80 or Audit-C>= M4/F3 Audit-C Score from Diag Assess: 0 Blood Alcohol Level: Laboratory Tests 01/29 1126 Toxicology Serum Alcohol (<10 MG/DL) < 10.0 Alcohol Use Screening Results: Neg per Audit C &/or BAL - If ETOH counseling indicated - the following topics are required. - #1 Express concern about the patient's - drinking at unhealthy levels, include informing - of national norms for moderate drinking: - men <= 14 drinks/week, max 4 drinks/occasion - women <= 7 drinks/week, max 3 drinks/occasion - #2 Providing feedback, including linking alcohol to - negative physical effects (liver injury, hypertension) - negative emotional effects (relationship problems and - depression) - negative occupational consequences (reduced work - performance) - #3 Advising the patient to abstain from alcohol or - to drink below national norms for moderate drinking - (as listed above). Status of ETOH Use Counseling: N/A B/C NO ETOH Use Metabolic Screening - Screen if on a Neuroleptic Medication - Metabolic screening should include: - Blood Pressure, BMI, Glucose or Hgb A1c, & a - Lipid profile from within the past 365 days. Metabolic Screening () Not Applicable, patient not on a neuroleptic. OR () Patient on a neuroleptic(s) . Enter below results for Hemoglobin A1C, and lipid panel if obtained during the last 365 days. BMI: 29.100 Blood Pressure: 103/72 Laboratory Results From [facility] (If applicable): [x] Lab Cholesterol 201 MG/DL H 09/11/17 1700 Cholesterol/HDL Ratio 4 % 09/11/17 1700 HDL Cholesterol 57 mg/dL 09/11/17 1700 Hemoglobin A1c 5.1 % 09/11/17 1700 LDL Cholesterol, Calc 126 mg/dL 09/11/17 1700 Triglycerides 93 mg/dL 09/11/17 1700 Exam and Plan Mental Status Examination Ambulation Status: Walking without difficulty. Appearance: Was asleep in bed but got up and met with us in office. Dressed in blue paper scrubs. Attitude towards examiner: Calm, polite and cooperative. Psychomotor activity: There is no psychomotor agitation or retardation. Behavior: Unremarkable. Quality of speech: Normal in volume, rate and tone. Affect: Depressed, tearful. Mood: "I am a little depressed." Rates sad mood 10. Rates anxiety /10. Feels hopeless and helpless. Denies feeling worthless. Does feel guilty. Suicidal Ideation: Denies active and passive suicidal ideation. Gives a safety promise for here. Homicidal Ideation: Denies homicidal ideation. Hallucinations: Denies auditory and visual hallucinations. Paranoid/Delusional Material: Denies paranoid ideation and magical gutierrez. Difficulties with thought organization: There is no apparent thought disorder or delusions. Insight: Fair. Judgment: Fair now, was poor. Orientation: Oriented 3 except gives the date as 01/31/2018. Cognition: Grossly intact. Memory Function: Grossly intact. Estimate of intellectual functioning: Average. Assets/Strengths Patient Identified Assets/Strengths: "Oh my God, I don't think I have any right now." Impression/Plan Impression and Plan: The patient is here with recent suicidal ideation in the context of relapse and homelessness. Marital conflict persists. - Include all active medical diagnosis that require tx DSM 5 Diagnosis(es): Unspecified depression. Cocaine use disorder. Opioid use disorder. Hypothyroidism. Congenital bilateral hearing loss. History of hepatitis C antibody. - Initial Tx Plan for Active Psych & Medical Conditions Treatment Plan: The patient will be monitored on unit for safety, substance withdrawal and mood disorder. Per protocol, we will start tapering methadone down by 5 mg a day because of dirty urine. Additional information is needed from collaterals. We are looking into placement at [facility]. Patient has agreed to an increase in Zoloft dose to 150 mg daily. Anticipate likely discharge on Friday. - Factors that would help patient function - in a less restrictive setting. Factors: Not feeling suicidal.
--- NOTE | 2018-01-30 17:00 | SOCIAL WORKER PROG NOTE PSYCH ---
Social Work Progress Note Progress Note This production underwriter met with patient to inform of the referrals that were submitted. Patient refused to accept referrals to any other program: "I have my reasons." Patient did not expand further on this comment. This production underwriter informed patient of [facility]. She was agreeable to a referral to [facility] as well as a referral to [facility]. Patient was also agreeable to signing a AUGUSTINE for the [facility]. Patient expressed hope about a bed at crisis and respite. She agreed to call [phone] this weekend in interest of scheduling a CAN assessment.
[2018-01-30 19:55] VITALS: BP 117/74
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
[2018-01-31 07:44] VITALS: BP 109/76
[2018-01-31 12:25] VITALS: BP 102/65
--- NOTE | 2018-01-31 14:52 | CP SOUTH PROGRESS NOTE PSYCH ---
Psych (Inpt) Progress Note Progress Note Include the following elements, when applicable: Involvement in the active treatment of the patient with behavioral observations of the patient and the patient's response to the treatment. Review of the ongoing treatment process in the context of the treatment plan. Indication of how multi-disciplinary staff members are carrying out the treatment plan. Plans for future interventions and recommendations for revision of the treatment plan. Liaison with other physicians/providers. Progress Note: Case discussed with nurse. Nurse reports that the patient is calm this morning. Denying suicidal ideation. Wants to feel better. Patient seen at 10:27 AM. She was asleep in bed but was easily awakened. She got up and met with me in office. Affect is calm, blunted and tearful. Mood is sad. States she is just upset with what her did. States that he pulled her out of rehab and "just threw me out like trash." Rates sad mood like 7/10 and anxiety 3/10. Feels hopeless and helpless. Feels guilty about relapsing. Denies feeling worthless. Denies active and passive suicidal ideation. Denies homicidal ideation. Denies auditory and visual hallucinations and paranoid ideation. Reports sleep and appetite are good. Energy is low. Tolerating medications well, including increase in Zoloft dose. IMPRESSION: Slow progress. Continue present treatment plan. Anticipate likely discharge early next week.
[2018-01-31 16:05] VITALS: BP 105/65
[2018-01-31 19:50] VITALS: BP 125/69
[2018-02-01 08:05] VITALS: BP 115/70
[2018-02-01 12:28] VITALS: BP 127/67
--- NOTE | 2018-02-01 15:28 | CP SOUTH PROGRESS NOTE PSYCH ---
Psych (Inpt) Progress Note Progress Note Include the following elements, when applicable: Involvement in the active treatment of the patient with behavioral observations of the patient and the patient's response to the treatment. Review of the ongoing treatment process in the context of the treatment plan. Indication of how multi-disciplinary staff members are carrying out the treatment plan. Plans for future interventions and recommendations for revision of the treatment plan. Liaison with other physicians/providers. Progress Note: Case discussed with nurse. Nurse reports that the patient slept well and appears stable. No major behavioral issues. Vital signs stable. Denying suicidal ideation. Denying pain. Patient seen at 9:48 AM. She was watching TV in the dining room but got up and met with me in office. States she is alright. States she just feels really messed up about leaving rehab. States it was a big mistake (to leave). States she is having a hard time living with it. Reports that the rejection from her , Bob, was devastating and she feels worthless. Affect is depressed. States she does not know how to start over. She agrees to a pastoral care consult. Rates sad mood 8/10 and anxiety 2/10. Feels hopeless, helpless, worthless and guilty. Denies active suicidal ideation. Has passive suicidal ideation. Gives a safety promise for here. She feels safe for her next placement as well. Denies homicidal ideation. Denies auditory and visual hallucinations and paranoid ideation. States that she slept well, actually. Appetite is good. Energy is getting better and is medium. Tolerating medications well, without complaint. IMPRESSION: Slow progress. Continue present treatment plan.
[2018-02-01 16:01] VITALS: BP 114/63
[2018-02-01 19:49] VITALS: BP 110/74
[2018-02-02 07:44] VITALS: BP 99/67
[2018-02-02 07:48] VITALS: BP 118/66
[2018-02-02 12:07] VITALS: BP 96/73
--- NOTE | 2018-02-02 15:54 | CP SOUTH PROGRESS NOTE PSYCH ---
Psych (Inpt) Progress Note Progress Note Include the following elements, when applicable: Involvement in the active treatment of the patient with behavioral observations of the patient and the patient's response to the treatment. Review of the ongoing treatment process in the context of the treatment plan. Indication of how multi-disciplinary staff members are carrying out the treatment plan. Plans for future interventions and recommendations for revision of the treatment plan. Liaison with other physicians/providers. Progress Note: Case and treatment plan discussed in team meeting. Patient reported suicidal ideation yesterday but not this morning. Describes as a little flat and depressed this morning. Patient seen at 2:02 PM. She was in group prior to meeting with me in office. States "I'm here." Reports she is depressed and feels like a piece of crap. She does not think she will be ready for discharge tomorrow. Wants discharge on . Affect is depressed. Reports she is just feeling really worthless and guilty. She is afraid to call her kids because she spent all her money on drugs and is supposed to buy them things. Feels "really stupid" for having "made a bunch of bad decisions." Rates sad mood 8/10 and anxiety 3/10. Feels hopeless. Denies feeling helpless. Denies active and passive suicidal ideation. Denies homicidal ideation. Denies auditory and visual hallucinations and paranoid ideation. Reports she slept pretty well last night. Appetite is pretty good. Energy is good. Tolerating medications "fine." IMPRESSION: Slow progress. Continue present treatment plan. We are working on rehab placement options for the patient. We have agreed to set a discharge date of .
[2018-02-02 16:04] VITALS: BP 114/64
--- NOTE | 2018-02-02 16:24 | SOCIAL WORKER PROG NOTE PSYCH ---
Social Work Progress Note Progress Note This quality analyst/technical writer met with patient. She was agreeable to additional referrals being made to rehab programs (please see note by Dayanara Siegel LCSW regarding these referrals). Patient refused a family meeting. She denied SI/HI/AH/VH. She stated that she did not feel ready to leave tomorrow, identifying homelessness as a major concern. Patient stated that she hopes to be able to return to the [facility] inpatient program as she found it to be helpful. Patient expressed interest in meeting with the patient advocate due to feeling as though she was being discharged too early should she discharge tomorrow. Margarita Clifford, pt advocate, was contacted and will meet with the patient. This quality analyst/technical writer conducted a phone screening with Dunia at [facility] in [place]. Patient was accepted with a bed available on 02/04/18, pending a conversation between Dunia and the patient by phone tomorrow regarding discharge plans. This quality analyst/technical writer relayed the infomration to the patient. Per Dunia's inquiry, patient was agreeable to taking a train to/from [facility] for her Methadone treatment. This quality analyst/technical writer spoke with Rachael at the [facility] inpatient program. A screening was scheduled for the patient at 4pm. This quality analyst/technical writer assisted the patient in calling the [facility] for the screening and spoke with Carmen.
--- NOTE | 2018-02-02 18:06 | SOCIAL WORKER PROG NOTE PSYCH ---
Social Work Progress Note Progress Note Faxed clinical to [facility] - Fax confirmations received (in Iza Alvarado's binder).
--- NOTE | 2018-02-02 18:30 | SOCIAL WORKER PROG NOTE PSYCH ---
Social Work Progress Note Progress Note Determination Status: PENDED The services requested require additional review. You will be contacted regarding the status of this request if further information is needed. An authorization decision will be made within the required timeframes and details of that decision may be found under the member's authorization history. Member Name Member ID Member Subscriber Name Subscriber ID SHANI CARDONA [id number] 1970 SHANI CARDONA [id number] Pended Authorization # Client Authorization # Type of Request [id number] CONCURRENT Date of Admission/ Start of Services Requested From Submission Date 01/29/2018 02/02/2018 02/02/2018 Level of Service Type of Service Level of Care Type of Care INPATIENT/[facility]PATIENT [facility]OSPITAL Reason Code P77 Provider Name & Address Provider ID Provider Alternate ID NPI # for Authorization DANIELLE WARE [facility] [id number]
[2018-02-02 20:07] VITALS: BP 96/64
[2018-02-03 07:33] VITALS: BP 93/70
[2018-02-03 12:21] VITALS: BP 119/66
--- NOTE | 2018-02-03 13:46 | SOCIAL WORKER PROG NOTE PSYCH ---
Social Work Progress Note Progress Note SHANI CARDONA [id number] 1970 SHANI CARDONA [id number] Pended Authorization # Client Authorization # Type of Request [id number] CONCURRENT Date of Admission/ Start of Services Requested From Submission Date 01/29/2018 02/03/2018 02/03/2018
--- NOTE | 2018-02-03 15:04 | CP SOUTH PROGRESS NOTE PSYCH ---
Psych (Inpt) Progress Note Progress Note Include the following elements, when applicable: Involvement in the active treatment of the patient with behavioral observations of the patient and the patient's response to the treatment. Review of the ongoing treatment process in the context of the treatment plan. Indication of how multi-disciplinary staff members are carrying out the treatment plan. Plans for future interventions and recommendations for revision of the treatment plan. Liaison with other physicians/providers. Progress Note: Case and treatment plan discussed in team meeting. Staff reports that the patient is denying SI. Attending groups. Talking about her relapse. Tearful at times. Patient has a bed at [facility]. Patient seen at 11:43 AM with medical student. Patient was in group prior to meeting with us in office. Affect is calm and blunted to euthymic. Appears awake and alert. Patient knows she is leaving tomorrow. States she still feels a little messed up but states she will be fine. Feels "stupid" for having left the rehab. Anxious about retrieving her belongings from friend's house because she lost the keys to her friend's house. Mood is good. Rates sad mood 3/10. Rates anxiety about 6/10. Denies feeling hopeless, stating not anymore. Denies feeling helpless. Feels worthless and guilty. Denies active and passive suicidal ideation. Denies homicidal ideation. Denies auditory and visual hallucinations and paranoid ideation. Reports that she slept well. Describes appetite and energy as good. Tolerating medications well, without complaint. IMPRESSION: Condition improving. Anticipate discharge tomorrow to [facility]. Patient wants to stop by friend's house to retrieve her belongings. This does not seem like a good decision due to risk for relapse. Patient will need a PPD placed if she hasn't had one recently.
[2018-02-03 15:46] VITALS: BP 92/65
--- NOTE | 2018-02-03 18:15 | SOCIAL WORKER PROG NOTE PSYCH ---
Social Work Progress Note Progress Note This creative writer met with patient. She reported feeling tired. She denied SI/HI/AH/ VH and denied cravings, triggers and urges for substance use. Patient spoke with Carina at [facility] in [place] regarding discharge plans. Carina stated that she would follow up with Dunia and Radha who were not in there office at the time of the call. This creative writer spoke with Radha at [facility]. After speaking with the patient, Radha stated that they would be willing to have her come to their facility tomorrow, 02/04/18. Patient was agreeable to this plan.
[2018-02-03 20:06] VITALS: BP 114/64
[2018-02-04 07:53] VITALS: BP 136/67
[2018-02-04 12:03] VITALS: BP 109/76
[2018-02-04] MEDS ORDERED: SERTRALINE HCL50 MG PO (12:09)
[2018-02-04] MEDS ORDERED: METHADONE HCL10 M1 PO (12:09)
[2018-02-04] MEDS ORDERED: HYDROXYZINE HCL25 M2 PO (12:09)
[2018-02-04] MEDS ORDERED: GABAPENTIN300 M2 PO (12:09)
[2018-02-04] MEDS ORDERED: NICOTINE PATCH1 EAC3 TOP (12:09)
[2018-02-04] MEDS ORDERED: BUPROPION HCL150 M4 PO (12:09)
[2018-02-04] MEDS ORDERED: SYNTHROID150 MCG PO (12:09)
[2018-02-04] MEDS ORDERED: OLANZAPINE5 M2 PO (12:09)
--- NOTE | 2018-02-04 12:16 | Patient Discharge Instructions ---
Psych Discharge Inst General Discharge Information Reason for Admission: Circumstances Leading to Admission: Left [facility] residential prematurely to return to live with and children but changed his mind after a couple of days and dropped patient off at the home of a female friend who uses. Patient relapsed. Problem(s) Justifying Need for Admission: Suicidal ideation. Depressed mood. Psy Discharge Primary Diag+ Unspecified depression Psy Discharge Secondary Diag+ Cocaine use disorder Opioid use disorder Hypothyroidism Ronald. b/l hearing loss Hx hepatitic C anbibody Summary Tests/Major Procedures Lab ALT 29 U/L 01/29/18 1126 AST 50 U/L H 01/29/18 1126 BUN 8 mg/dL 01/29/18 1126 Calcium 9.2 mg/dL 01/29/18 1126 Carbon Dioxide 26 mmol/L 01/29/18 1126 Chloride 106 mmol/L 01/29/18 1126 Cholesterol 201 MG/DL H 09/11/17 1700 Cholesterol/HDL Ratio 4 % 09/11/17 1700 Creatinine 0.7 mg/dL 01/29/18 1126 Estimated GFR > 60 ml/min 01/29/18 1126 Free T4 1.34 ng/dL 01/29/18 1126 Glucose 107 mg/dL H 01/29/18 1126 HDL Cholesterol 57 mg/dL 09/11/17 1700 Hemoglobin A1c 5.1 % 09/11/17 1700 LDL Cholesterol, Calc 126 mg/dL 09/11/17 1700 Potassium 4.1 mmol/L 01/29/18 1126 Sodium 142 mmol/L 01/29/18 1126 TSH &T3 &Free T4 Intrp 0.041 uIU/mL L 01/29/18 1126 Total Bilirubin 0.5 mg/dL 01/29/18 1126 Total T3 1.54 ng/mL 01/29/18 1126 Triglycerides 93 mg/dL 09/11/17 1700 Hct 37.0 % 01/29/18 1126 Hgb 11.8 G/DL L 01/29/18 1126 Lymphocytes % 20.2 % L 01/29/18 1126 MCH 25.6 PG L 01/29/18 1126 MCHC 32.0 G/DL L 01/29/18 1126 MCV 80.0 FL L 01/29/18 1126 Plt Count 320 /CUMM 01/29/18 1126 RBC 4.62 /CUMM 01/29/18 1126 RDW 19.9 % H 01/29/18 1126 WBC 6.0 /CUMM 01/29/18 1126 Methadone Screen > 735 NG/ML H 01/29/18 1253 Serum Alcohol < 10.0 MG/DL 01/29/18 1126 Urine Cocaine Screen > 1000 NG/ML H 01/29/18 1253 Urine Opiates Screen > 4000.00 NG/ML H 01/29/18 1253 Urine Test NEGATIVE 01/29/18 1253 Studies Pending at DC: None. Patient Instructions Contact Information Your Psychiatrist on [facility] was Patrick SILVA,[place] * If you are experiencing an emergency related to this hospitalization, please call [phone] to contact the treating psychiatrist or the psychiatrist-on- call. * To Request a copy of your medical records, please contact the Medical Records Department at [phone]. * To request results of studies pending at the time of discharge, please call [phone]. * Continue your Medications until directed to stop by your Healthcare provider. General Medication Information Please continue to take your new medications and your continued home medications , unless otherwise indicated on your discharge medication list, or unless directed by your MD or LIBRARY MEDIA ASSISTANT to stop them. Special Instructions Diet Regular Activity Normal Other Inst/Recommendations Have repeat thyroid fn tests in 6 weeks. See PCP for medical issues. - Tobacco Use Treatment Offered Post DC Medications Offered: Script Given-See Med List Post DC Tobacco Treatment Plan: [place] [facility] Program Appt Date: 02/11/18 Program Appt Time: 1600 - EtOH/Drug Use D/O Treatment Offered Post DC Medications Offered: Script Given-See Med List (On methadone. No Rx given.) Post DC EtOH/SubAbuse TX Plan: Other SubAbuse/Dual Pgm ([facility]) Program Appt Date: 02/05/18 Program Appt Time: 0900 Metabolic Screening () Not Applicable, patient not on a neuroleptic. OR () Patient on a neuroleptic(s) . Enter below results for Hemoglobin A1C, and lipid panel if obtained during the last 365 days. BMI: 29.100 Blood Pressure: 109/76 Laboratory Results From [facility] (If applicable): [x] Lab Cholesterol 201 MG/DL H 09/11/17 1700 Cholesterol/HDL Ratio 4 % 12/14/17 1700 HDL Cholesterol 57 mg/dL 09/11/17 1700 Hemoglobin A1c 5.1 % 09/11/17 1700 LDL Cholesterol, Calc 126 mg/dL 09/11/17 1700 Triglycerides 93 mg/dL 09/11/17 1700 Advance Directives Does the Patient have Medical Advance Directives No/Refused further info Does Pt have Psychiatric Advance Directives? No/Refused further info Does Patient have a Designated Surrogate Decision Maker: No Information About Psychiatric Advance Directives Provided? Refused Discharge Plan Post Hospital Treatment Plan: [facility] [place]. [facility].
--- NOTE | 2018-02-04 14:18 | CP SOUTH PROGRESS NOTE PSYCH ---
Psych (Inpt) Progress Note Progress Note Include the following elements, when applicable: Involvement in the active treatment of the patient with behavioral observations of the patient and the patient's response to the treatment. Review of the ongoing treatment process in the context of the treatment plan. Indication of how multi-disciplinary staff members are carrying out the treatment plan. Plans for future interventions and recommendations for revision of the treatment plan. Liaison with other physicians/providers. Progress Note: Case and treatment plan discussed in team meeting. Staff reports that the patient is planning for discharge. She isolated some of last evening. [facility] will [facility] Patient seen at 12:17 PM. Reports doing okay. She appears mildly anxious. States she is just a little anxious and rates anxiety like a 6/10. Rates sad mood 3/10. Denies feeling hopeless, helpless or worthless. Feels guilty about "messing up too bad." Denies active and passive suicidal ideation. Denies homicidal ideation. Denies auditory and visual hallucinations and paranoid ideation. Describes sleep is all right, appetite as good and energy as good. Tolerating medications well, without complaint. Feels ready and safe for discharge. IMPRESSION: Condition improved. Okay for discharge today to [facility] [place] with follow-up at [facility] for methadone maintenance.
--- NOTE | 2018-02-04 14:25 | DISCHARGE SUMMARY REPORT-PSYCH ---
Visit Information Visit Dates/Diagnosis' Admission Date: 01/29/18 Discharge Date: 02/04/18 Reason for Admission: Circumstances Leading to Admission: Left [facility] residential prematurely to return to live with and children but changed his mind after a couple of days and dropped patient off at the home of a female friend who uses. Patient relapsed. Problem(s) Justifying Need for Admission: Suicidal ideation. Depressed mood. Psy Discharge Primary Diag: Unspecified depression Psy Discharge Secondary Diag: Cocaine use disorder Opioid use disorder Hypothyroidism Ronald. b/l hearing loss Hx hepatitic C [employer] [facility] Hospital Course Significant Lab Findings: Lab ALT 29 U/L 01/29/18 1126 AST 50 U/L H 01/29/18 1126 BUN 8 mg/dL 01/29/18 1126 Calcium 9.2 mg/dL 01/29/18 1126 Carbon Dioxide 26 mmol/L 01/29/18 1126 Chloride 106 mmol/L 01/29/18 1126 Cholesterol 201 MG/DL H 09/11/17 1700 Cholesterol/HDL Ratio 4 % 09/11/17 1700 Creatinine 0.7 mg/dL 01/29/18 1126 Estimated GFR > 60 ml/min 01/29/18 1126 Free T4 1.34 ng/dL 01/29/18 1126 Glucose 107 mg/dL H 01/29/18 1126 HDL Cholesterol 57 mg/dL 09/11/17 1700 Hemoglobin A1c 5.1 % 09/11/17 1700 LDL Cholesterol, Calc 126 mg/dL 09/11/17 1700 Potassium 4.1 mmol/L 01/29/18 1126 Sodium 142 mmol/L 01/29/18 1126 TSH &T3 &Free T4 Intrp 0.041 uIU/mL L 01/29/18 1126 Total Bilirubin 0.5 mg/dL 01/29/18 1126 Total T3 1.54 ng/mL 01/29/18 1126 Triglycerides 93 mg/dL 09/11/17 1700 Hct 37.0 % 01/29/18 1126 Hgb 11.8 G/DL L 01/29/18 1126 Lymphocytes % 20.2 % L 01/29/18 1126 MCH 25.6 PG L 01/29/18 1126 MCHC 32.0 G/DL L 01/29/18 1126 MCV 80.0 FL L 01/29/18 1126 Plt Count 320 /CUMM 01/29/18 1126 RBC 4.62 /CUMM 01/29/18 1126 RDW 19.9 % H 01/29/18 1126 WBC 6.0 /CUMM 01/29/18 1126 Methadone Screen > 735 NG/ML H 01/29/18 1253 Serum Alcohol < 10.0 MG/DL 01/29/18 1126 Urine Cocaine Screen > 1000 NG/ML H 01/29/18 1253 Urine Opiates Screen > 4000.00 NG/ML H 01/29/18 1253 Urine Test NEGATIVE 01/29/18 1253 Course Complications: None. Consultations: The patient was seen by Dr. Zaid Edgar on 01/30/18 for admission H&P. Per his note of that date: "Assessment: This young female is admitted to the hospital with polysubstance abuse and depression and nonspecific psychosis. From medical standpoint she is fairly stable without any acute illness. She is taking her levothyroxin 200 g daily and she seems to be taking it regularly. Her TSH is low and her free T4 and total T3 are on the higher side of normal and we should cut down the dose somewhat down to 150 g or so which might bring her TSH to normal and still keep the free thyroxine level within normal limits. Her blood work needs to be repeated in about 6 weeks after adjustment of the dose but otherwise she is in stable medical condition without any other acute problems. She has a history of hepatitis C and her AST is only minimally elevated and the rest of the liver functions are normal and she does not require any medicine at this time." Allergies: Coded Allergies: cephalexin (Mild, hives 08/21/17) chlorpromazine (From THORAZINE) (SEVERE RESP. DISTRESS 08/20/17) haloperidol (From HALDOL) (SEVERE RESP. DISTRESS 08/20/17) prochlorperazine (From COMPAZINE) (DYSTONIC REACTION 08/20/17) Hospital Course/TX Response: The patient was monitored on the unit for safety and mood disorder. She participated in multi-modal treatments on the unit. Methadone was reduced by 5 mg/day per protocol, because of dirty urine on presentation. Zoloft dose was increased to 150 mg daily. Home medications were otherwise continued without change. Mood and affect have improved. Suicidal ideation has remitted. Progress note from date of discharge, 02/04/18: Case and treatment plan discussed in team meeting. Staff reports that the patient is planning for discharge. She isolated some of last evening. [facility]. Patient seen at 12:17 PM. Reports doing okay. She appears mildly anxious. States she is just a little anxious and rates anxiety like a 6/10. Rates sad mood 3/10. Denies feeling hopeless, helpless or worthless. Feels guilty about "messing up too bad." Denies active and passive suicidal ideation. Denies homicidal ideation. Denies auditory and visual hallucinations and paranoid ideation. Describes sleep is all right, appetite as good and energy as good. Tolerating medications well, without complaint. Feels ready and safe for discharge. IMPRESSION: Condition improved. Okay for discharge today to [facility] in [place] with follow-up at [facility] for methadone maintenance. Discharge HBIPS - Tobacco Use Treatment Offered Post DC Medications Offered: Script Given-See Med List Post DC Tobacco Treatment Plan: [place] [facility] Program Appt Date: 02/11/18 Program Appt Time: 1600 - EtOH/Drug Use D/O Treatment Offered Post DC Medications Offered: Script Given-See Med List (On methadone through [facility].) Post DC EtOH/SubAbuse TX Plan: Other SubAbuse/Dual Pgm ([facility]) Program Appt Date: 02/05/18 Program Appt Time: 0900 Metabolic Screening - Screen if on a Neuroleptic Medication - Metabolic screening should include: - Blood Pressure, BMI, Glucose or Hgb A1c, & a - Lipid profile from within the past 365 days. Metabolic Screening () Not Applicable, patient not on a neuroleptic. OR () Patient on a neuroleptic(s) . Enter below results for Hemoglobin A1C, and lipid panel if obtained during the last 365 days. BMI: 29.100 Blood Pressure: 109/76 Laboratory Results From [facility] (If applicable): [x] Lab Cholesterol 201 MG/DL H 09/11/17 1700 Cholesterol/HDL Ratio 4 % 09/11/17 1700 HDL Cholesterol 57 mg/dL 09/11/17 1700 Hemoglobin A1c 5.1 % 09/11/17 1700 LDL Cholesterol, Calc 126 mg/dL 09/11/17 1700 Triglycerides 93 mg/dL 09/11/17 1700 Discharge Instructions General Discharge Information Multiple Neuroleptics: ([x]) Not Applicable OR Document below three failed attempts at monotherapy, or a plan to taper to monotherapy, or augmentation of Clozapine. () Discharge Diet Regular Discharge Activity Normal DC Disposition: Referred to housing at [facility] in [place]. Referrals Ordered Referrals Provider Referral 02/04/18 For Providers: [[facility]] For Groups: [[facility]] [facility] [address] [place] [address] Provider Referral 02/11/18 For Providers: [[facility]] For Groups: [[facility]] [facility] [address] [phone] Group meets every other Friday at 4pm Next group: 02/11/18, at 4pm Provider Referral 02/05/18 For Groups: [[facility]] [address] [phone] Walk in hours: week of 02/02/18: Friday-Friday 5am-3pm week of 02/09/18: Friday-Friday 5am-2pm Patient will utilize walk in hours on 02/05/18 for Methadone. She will speak with a clinician about engaging in IOP and medication management. Provider Referral 02/09/18 For Groups: [[facility]] JA Gordon [facility] [address] [place] [address] office phone: [phone] [facility] general phone: [phone] Primary Care Appointment: 02/09/18, at 3pm with JA Gordon Provider Referral For Groups: [Resources] Additional Resources: [facility]: [phone] [facility]: [phone] [facility]: [phone] [facility]: [phone] Prescriptions Stop taking the following medications: Levothyroxine Sodium (Synthroid) 200 MCG TABLET ORAL DAILY BEFORE BREAKFAST Qty = 15 Methadone HCl (Methadone HCl) 10 MG/ML ORAL.CONC ORAL DAILY Sertraline HCl (Zoloft) (Unknown Strength) TABLET ORAL DAILY Gabapentin (Gabapentin) 300 MG CAPSULE ORAL 4 TIMES A DAY Qty = 180 Continue taking these medications: Olanzapine (Olanzapine) 5 MG TABLET 1 Tablet ORAL TWICE DAILY Qty = 28 Comments: Last Taken: 02/04/18 Time: 753 This prescription has been renewed Hydroxyzine Hydrochloride (Atarax) 25 MG TAB 25 Milligram ORAL AT BEDTIME as needed for SLEEP Qty = 14 Comments: Last Taken:02/03/18 Time:2121 This prescription has been renewed Start taking the following new medications: Nicotine (Nicotine Patch) 21 MG/24 HOUR PATCH.TD24 1 Patch On the skin DAILY Qty = 14 No Refills Comments: Last Taken:02/04/18 Time:752 Gabapentin (Gabapentin) 300 MG CAPSULE 3 Capsule ORAL 4 TIMES A DAY Qty = 168 No Refills Comments: Last Taken:02/04/18 Time:753 Sertraline HCl (Sertraline HCl) 50 MG TABLET 3 Tablet ORAL DAILY @8 AM Qty = 42 No Refills Comments: Last Taken:02/04/18 Time:753 Levothyroxine Sodium (Synthroid) 150 MCG TABLET 0.15 Milligram ORAL DAILY BEFORE BREAKFAST Qty = 14 No Refills Comments: Last Taken:02/04/18 Time:06 Methadone Hydrochloride (Methadone HCl) 10 MG TABLET 4 Tablet ORAL DAILY Qty = 4 No Refills Instructions: THIS IS NOT AN ACTUAL PRESCRIPTION. [facility] WILL BE PROVIDING METHADONE. Comments: Last Taken:02/04/18 Time:752 The following medications have been changed: Old: Bupropion HCl (Bupropion HCl Sr) 150 MG TABLET.ER 1 Tablet ORAL TWICE DAILY Qty = 30 New: Bupropion HCl (Bupropion HCl Sr) 150 MG TABLET.ER 1 Tablet ORAL TWICE DAILY Qty = 28 Instructions: take at 8 am and 5 pm Comments: Last Taken:02/04/18 Time:753 Other Inst/Recommendations Have repeat thyroid fn tests in 6 weeks. See PCP for medical issues. Studies Pending at Discharge None. Copies To: [facility]
[2018-02-04 15:53] VITALS: BP 122/72
--- NOTE | 2018-02-04 18:15 | SOCIAL WORKER PROG NOTE PSYCH ---
Social Work Progress Note Progress Note This life insurance underwriter met with patient. She reported her mood as "alright", "a little anxious" due to discharging today. She stated that she completed the phone screening with [facility] and will follow up with Rachael tomorrow. Patient accepted the numbers for [facility] to follow up on referrals. Patient discussed being focused and hopeful on returning to [facility] inpatient program. Patient stated that she will continue with [facility] IOP, Methadone treatment and medication management while she waist for an available bed. Patient stated that her , Bob, will assist her in retrieving belongings where she last stayed prior to admission once she is allowed to leave [facility] during the day. Patient was agreeable to a referral to [facility]. This was completed by Juan Francsico Fox LCSW and patient stated that she met with Domenico from [facility] today on [facility]. As patient expressed interest in a primary care provider, she accepted a referral to [facility]. Patient denied SI/HI/AH/VH. She identified a safety plan to "call 911" and accepted the crisis numbers and warm line numbers. Patient was agreeable toa ride being scheduled with Alessandra. This life insurance underwriter spoke with Melissa at [facility] at 1: 57pm requesting an immediate ride. Appointments This life insurance underwriter scheduled an appointment with [facility]: JA Gordon, 02/09/18 at 3pm Patient will go to [address] tomorrow for Methadone treatment and to engage in IOP/medication management. A vm was left for Carina, [facility] accounting clerks supervisor, at 10:45am, informing her of this plan. This life insurance underwriter provided [facility] with information regarding questions 1-4 on the W10. This life insurance underwriter contacted the following programs to follow up on referral ( information relayed to patient): [facility] - beds and waiting list are full, but patient may follow up [facility] - vm left for Michelle in admission at 11:25am [facility] -vm left for Alicia in admission at 11:28am This life insurance underwriter called [facility] again at 6:02 and spoke with Alejandra who stated that the cab arrived, called and was informed that the patient had left. Alejandra was able to identify another cab ([employer]) and at 6:15pm stated that the ride should arrive within 5 minutes. This was relayed to nursing. Fax to [facility] was sent multiple times due to paper catching in printer.
--- NOTE | 2018-02-05 12:00 | SOCIAL WORKER PROG NOTE PSYCH ---
Social Work Progress Note Progress Note Provider Connect Home ProviderConnect Home Determination Status: DISCHARGE COMPLETED Thank you. You have completed your discharge for this episode of care. Member Name Member ID Member Subscriber Name Subscriber ID SHANI CARDONA [id number] 1970 SHANI CARDONA [id number] Related Authorization # Related Client Authorization # Discharge # Discharge Date [id number] 02/05/2018 Level of Service Type of Service Level Of Care Type of Care IP - INPATIENT/HLOC P - MENTAL HEALTH I - INPATIENT CIP - INPATIENT HOSPITAL - INPATIENT HOSPITAL Provider Name & Address Provider ID Provider Alternate ID DANIELLE MAURICIOO [id number] [address] [place] [address] [phone]
== END 2018-02-04 18:18 | DRG 754 ==
LOC: ERH 10:59 → CP SOUTH 16:42 → ERHI 16:42 → ENTRNSPT 22:04 → EDTRNSPTSTS 22:11 → EDTRNSPT 22:11 → CP SOUTH 22:15 → CMPTRNSPT 22:20 → CP SOUTH 01-31 11:05
PROVIDERS: Physician Assistant Medical
DX: F32.9 Major depressive disorder, single episode, unspecified (principal); E03.9 Hypothyroidism, unspecified; F14.90 Cocaine use, unspecified, uncomplicated; F11.90 Opioid use, unspecified, uncomplicated; H91.93 Unspecified hearing loss, bilateral
CPT/HCPCS: 80307; 81025; G0480; J3490